=== PATIENT | female | born 1980 | race Caucasian/White ===

== ENCOUNTER → 2016-09-07 | Outpatient (CLI) | payer MEDICARE, MEDICAID ==
[~2016-09-07] MED LIST: ABIL5TAB5 PO; ASPI325T PO; LAMI1TAB8 PO; LAMI200T3 PO; MINI2CAP PO; PERC5TAB6 PO; PRIL40CA PO; QUET30XR PO; THYR60TA PO; TRAN7.5T PO; TRAZ150T14 PO; TRI-TAB PO; TRIH2TA PO; ZOLO50TA PO; [UNRECOGNIZED DRUG - CODE] PO
== END ==
LOC: M LAB 08:15
PROVIDERS: ATTEND Physician Assistant Medical
DX: R56.9 Unspecified convulsions (principal); Z51.81 Encounter for therapeutic drug level monitoring

== ENCOUNTER 2017-02-11 08:43 | Inpatient (IN) | payer MEDICARE, MEDICAID ==
[~2017-02-11] VITALS: Ht 152.4 cm; Wt 50.1 kg
[~2017-02-11 08:43] MED LIST changes: +ABIL1TAB11 PO; -ABIL5TAB5 PO; +LAMI1TAB9 PO; -LAMI200T3 PO; +PERC5TAB12 PO; -PERC5TAB6 PO; -TRAZ150T14 PO; +TRAZ1TAB14 PO; -TRIH2TA PO; +TRIH2TAB3 PO; +[UNRECOGNIZED DRUG - CODE] PO; -[UNRECOGNIZED DRUG - CODE] PO
[2017-02-11] MEDS ORDERED: OXCA300T PO (08:58)
[2017-02-11] MEDS ORDERED: HYDR-3363 PO (08:58)
[2017-02-11] MEDS ORDERED: NS 1,000 ML IV ONE ×2 (09:45→12:15)
[2017-02-11] MEDS ORDERED: MORPHINE 4 MG/ML 1ML SYRINGE IV PRN (09:45)
[2017-02-11] MEDS ORDERED: ONDANSETRON 4MG/2ML VIAL (J2405) IV ONE (09:45)
[2017-02-11 10:21] LABS: BASO % 0.2 % (0.0-1.0); EOS % 0.2 % (0.0-3.0); LARGE UNSTAINED CELL # 0.1 K/mm3 (0.0-0.4); LARGE UNSTAINED CELL % 1.8 % (0.0-4.0); LYMPH # 0.7 K/mm3 (1.5-4.5); LYMPH % 15.1 % (24.0-44.0); MEAN CORPUSCULAR HEMOGLOBIN 28.3 pg (27.0-33.0); MEAN CORPUSCULAR HGB CONC 34.2 g/dl (32.0-36.5); MEAN CORPUSCULAR VOLUME 82.7 fl (80.0-96.0); MONO # 0.3 K/mm3 (0.0-0.8); MONO % 5.5 % (0.0-5.0); NEUTROPHILS # 3.7 K/mm3 (1.8-7.7); NEUTROPHILS % 77.1 % (36.0-66.0); PLATELET COUNT, AUTOMATED 236 k/mm3 (150-450); RED CELL DISTRIBUTION WIDTH 12.7 % (11.5-14.5); WHITE BLOOD COUNT 4.8 K/mm3 (4.0-10.0)
[2017-02-11 10:31] LABS: CALCIUM OXALATE CRYSTALS SMALL
[2017-02-11 10:34] LABS: CONTROL LINE HCG INT CTR LINE PRESENT
[2017-02-11 10:41] LABS: ALBUMIN/GLOBULIN RATIO 1.21 (1.00-1.93); ALKALINE PHOSPHATASE 77 U/L (45-117); ALT/SGPT 19 U/L (12-78); AMYLASE 112 U/L (25-115); ANION GAP 9 MEQ/L (8-16); AST/SGOT 13 U/L (15-37); BILIRUBIN,DIRECT 0.1 MG/DL (0.0-0.2); BILIRUBIN,TOTAL 0.3 MG/DL (0.2-1.0); BLOOD UREA NITROGEN 7 MG/DL (7-18); CALCIUM LEVEL 9.4 MG/DL (8.5-10.1); CARBON DIOXIDE LEVEL 28 MEQ/L (21-32); CHLORIDE LEVEL 94 MEQ/L (98-107); CREATININE FOR GFR 0.59 MG/DL (0.55-1.02); GLOMERULAR FILTRATION RATE > 60.0 (>60); GLUCOSE, FASTING 100 MG/DL (70-105); POTASSIUM SERUM 4.2 MEQ/L (3.5-5.1); SODIUM LEVEL 131 MEQ/L (136-145); TOTAL PROTEIN 7.3 GM/DL (6.4-8.2)
[2017-02-11] MEDS ORDERED: LORazepam 2 MG/ML VIAL (J2060) IV STA (10:56)
[2017-02-11] MEDS ORDERED: ISOVUE-370 76% 100ML VIAL (Q9967) As Ordered ONE (11:05)
--- NOTE | 2017-02-11 11:32 | REP ---
CHEST, PORTABLE: REASON: Pain. COMPARISON: 09/23/2014 FINDINGS: The technique utilized in obtaining the radiograph has magnified the cardiac silhouette and accentuated the interstitial markings. The superior mediastinal structures are midline. The cardiac silhouette is unremarkable in size, shape, and position. The diaphragmatic surfaces of the lungs are regular, and the costophrenic angles are clear. The pulmonary espinal are clear. The imaged osseous structures are intact. IMPRESSION: There is no acute cardiopulmonary disease. Signed by Antwan Osorio DO 02/11/2017 12:07 P
[2017-02-11] MEDS ORDERED: OMEP40CA2 PO (12:06)
[2017-02-11] MEDS ORDERED: TRINTAB3 PO (12:06)
[2017-02-11] MEDS ORDERED: TRAZ50TA11 PO (12:06)
--- NOTE | 2017-02-11 12:10 | REP ---
REASON: Possible pancreatitis. COMPARISON: None. Contrast 100 mL of Isovue 370. The lung bases are clear. The liver is within normal limits. There are a few incidental tiny hepatic cysts. The gallbladder, spleen, pancreas, adrenal glands, and kidneys are within normal limits. The abdominal aorta and para-aortic regions are within normal limits. The bowel loops and mesenteries are within normal limits. There is no free fluid or free air in the abdomen. CT PELVIS: There is no free fluid or free air. There is no mass or adenopathy. The bowel loops and mesenteries are within normal limits. The urinary bladder is distended. The osseous structures show no evidence of a lytic or blastic osseous lesion. IMPRESSION: No pancreatitis by CT criteria. The urinary bladder is distended. Correlate clinically. Signed by Antwan Osorio DO 02/11/2017 12:26 P
--- NOTE | 2017-02-11 12:14 | REP ---
REASON: Altered mental status. PRIORS: None. Mild diffuse lucencies are seen in the periventricular deep cerebral white matter. There is no evidence of an acute intracranial hemorrhagic or nonhemorrhagic event. The ventricles and sulci are within normal limits. There are no extra-axial fluid collections. There is no shift of the midline structures. The imaged paranasal sinuses and mastoid air cells are clear. IMPRESSION: No evidence of acute disease. Possible deep white matter ischemic changes. If the patient has symptoms referable to a demyelinating disorder, then an MRI would be in order. Signed by Antwan Osorio DO 02/11/2017 12:26 P
--- NOTE | 2017-02-11 12:43 | HPEPDOC ---
Medical History and Physical Date of Admission 02/11/17 History and Physical PRIMARY CARE PROVIDER: Dr. Yared Lubin ATTENDING: Dr. Sourav Robison CHIEF COMPLAINT: HISTORY OF PRESENT ILLNESS: This is a 36 y/o with PMHx MR, Seizure d/o, CP, Hypothyroidism, Autism, PTSD, Irregular menses who presents with back/abd pain and decreased appetite. Family/manager environmental health state that the patient has not been wanting to a over the past 2 days. Had no nausea or vomiting however had left upper quadrant pain. Patient has also been a little bit more confused than usual, only remembering her name and birthday. Has been doing repetitive motions getting up, sitting down. Difficulty ambulating by herself. No focal weakness. History is very limited. PAST MEDICAL HISTORY: As per HPI PAST SURGICAL HISTORY: Left leg mey, tooth extraction SOCIAL HISTORY: No tobacco, alcohol, illicit drug use. [facility] patient. FAMILY HISTORY: S - ADHD, Obesity ALLERGIES: Please see below. REVIEW OF SYSTEMS: HEENT: Denies sore throat/headache CARDIOVASCULAR: Denies chest pain/palpitations RESPIRATORY: Denies shortness of breath/cough GASTROINTESTINAL: denies nausea/vomiting GENITOURINARY: Denies dysuria/urinary urgency. MUSCULOSKELETAL: Denies myalgias/arthralgias NEUROLOGICAL: Denies any focal weakness HOME MEDICATIONS: Please see below. PHYSICAL EXAMINATION: Vitals: (see below) General: No acute distress, laying comfortably in bed. Axious HEENT: Moist mucous membranes. Perioral dry, reported to be from frequent licking of the lips. Neck: No JVD or lymphadenopathy Cardiac: RRR, No murmurs Pulm: Clear to auscultation b/l. No wheezing, rhonchi Abd: Mild TTP LUQ. No rebound/guarding/rigidity. ND + BS Ext: No edema or cyanosis Neuro: Very difficult to assess as pt was not cooperating. Moving all extremities equally. Awake and Alert. Oriented to person and birthday. LABORATORY DATA: See below. IMAGING: CXR 02/11/17 IMPRESSION: There is no acute cardiopulmonary disease. CT Head 02/11/17 IMPRESSION: No evidence of acute disease. Possible deep white matter ischemic changes. If the patient has symptoms referable to a demyelinating disorder, then an MRI would be in order. CT Abd/pelvis 02/11/17 IMPRESSION: No pancreatitis by CT criteria. The urinary bladder is distended. Correlate clinically. MICROBIOLOGY: Please see below. ASSESSMENT/PLAN: 1. Acute pancreatitis- sister with multiple episodes of pancreatitis. Will start patient on IV fluids, pain control with morphine. We'll also check right upper quadrant ultrasound. Triglyceride level. Nothing by mouth for now. 2. History of cerebral palsy. Abnormal CT of the head. History of seizures. Recent confusion and difficulty with ambulation. Will obtain MRI of the brain, although the CAT scan findings are very nonspecific. 3. Mental retardation- at [facility] 4. PTSD 5. Irregular menses. Patient is reported to have her menses at this point. Uses 2 pads daily. Family state of PTSD flares with her menses. 6. Hyponatremia - likely hypovolemic 2/2 decreased PO intake. Started on IVF. 7. AMS - ? baseline. Will check MRI brain. No focal deficits. ? Delerium. Will also check B12, TSH. Ammonia. DVT prophylaxis- enoxaparin Had an extensive conversation with the family regarding the treatment plan. They seem to be very nervous about the CAT scan Head findings although they understand that they very specific. Patient followed by Dr. Robison starting 02/12/17 7 AM. Vital Signs Vital Signs Date Time Temp Pulse Resp B/P (MAP) Pulse Ox O2 Delivery O2 Flow Rate FiO2 02/11/17 11:43 104 100 02/11/17 10:35 18 02/11/17 09:13 02/11/17 08:47 99.6 Room Air Laboratory Data Labs 24H Laboratory Tests 2 02/11/17 09:55: White Blood Count 4.8, Red Blood Count 4.44, Hemoglobin 12.6, Hematocrit 36.7, Mean Corpuscular Volume 82.7, Mean Corpuscular Hemoglobin 28.3, Mean Corpuscular Hemoglobin Concent 34.2, Red Cell Distribution Width 12.7, Platelet Count 236, Neutrophils (%) (Auto) 77.1H, Lymphocytes (%) (Auto) 15.1L, Monocytes (%) (Auto) 5.5H, Eosinophils (%) (Auto) 0.2, Basophils (%) (Auto) 0.2 , Neutrophils # (Auto) 3.7, Lymphocytes # (Auto) 0.7L, Monocytes # (Auto) 0.3, Eosinophils # (Auto) 0.0, Basophils # (Auto) 0.0, Large Unclassified Cells % 1.8 , Large Unclassified Cells # 0.1, Urine Appearance CLEAR, Urine Color STRAW, Urine pH 7.0, Urine Specific [place] 1.003, Urine Protein NEGATIVE, Urine Glucose (UA) NEGATIVE, Urine Ketones NEGATIVE, Urine Urobilinogen 0.2, Urine Bilirubin NEGATIVE, Urine Leukocyte Esterase NEGATIVE, Urine Blood NEGATIVE, Urine Nitrite NEGATIVE, Urine WBC (Auto) 0, Urine RBC (Auto) 1, Urine Hyaline Casts (Auto) 0, Urine Bacteria (Auto) NEGATIVE, Urine Squamous Epithelial Cells 1, Urine Transitional Epithelial Cells 1, Urine Calcium Oxalate Cryst (Auto) SMALL, Urine Sperm (Auto) , Anion Gap 9, Glomerular Filtration Rate > 60.0, Lactic Acid Level 0.9, Calcium Level 9.4, Aspartate Amino Transf (AST/SGOT) 13L , Alanine Aminotransferase (ALT/SGPT) 19, Alkaline Phosphatase 77, Total Bilirubin 0.3, Direct Bilirubin 0.1, Total Protein 7.3, Albumin 4.0, Albumin/ Globulin Ratio 1.21, Amylase Level 112, Lipase 751H, Human Chorionic Gonadotropin, Qual NEGATIVE 02/11/17 11:01: CBC/BMP Laboratory Tests 02/11/17 09:55 Red Blood Count 4.44, Mean Corpuscular Volume 82.7, Mean Corpuscular Hemoglobin 28.3, Mean Corpuscular Hemoglobin Concent 34.2, Red Cell Distribution Width 12.7 , Neutrophils (%) (Auto) 77.1 H, Lymphocytes (%) (Auto) 15.1 L, Monocytes (%) ( Auto) 5.5 H, Eosinophils (%) (Auto) 0.2, Basophils (%) (Auto) 0.2, Neutrophils # (Auto) 3.7, Lymphocytes # (Auto) 0.7 L, Monocytes # (Auto) 0.3, Eosinophils # (Auto) 0.0, Basophils # (Auto) 0.0 Microbiology Microbiology 02/11/17 Blood Culture, Received Pending 02/11/17 Blood Culture, Received Pending 02/11/17 Urine Culture, Received Pending Home Medications Scheduled (Trinessa 0.18/0.215/0.25 mg-35 Mcg) 1 Tab Tab, 1 TAB PO DAILY Aripiprazole (Abilify) 5 Mg Tab, 5 MG PO BID Clorazepate Dipotassium (Tranxene T) 7.5 Mg Tab, 7.5 MG PO DAILY Hydroxyzine HCl (Hydroxyzine HCl) 25 Mg Tab, 25 MG PO QID Lamotrigine (Lamictal) 150 Mg Tab, 150 MG PO DAILY Lamotrigine (Lamictal) 200 Mg Tab, 200 MG PO QHS Omeprazole (Omeprazole) 40 Mg Cap, 40 MG PO QPM TAKES AT 1600 Oxcarbazepine (Oxcarbazepine) 300 Mg Tab, 300 MG PO DAILY Prazosin HCl (Minipress) 2 Mg Cap, 2 MG PO QHS Quetiapine Fumarate (Seroquel Xr) 300 Mg [place], 600 MG PO QHS Sertraline Hcl (Zoloft) 50 Mg Tab, 50 MG PO DAILY Thyroid ([place] Thyroid) 60 Mg Tab, 60 MG PO DAILY Trazodone HCl (Trazodone HCl) 50 Mg Tab, 150 MG PO QHS Trihexyphenidyl HCl (Trihexyphenidyl HCl) 2 Mg Tab, 1 MG PO BID Allergies Coded Allergies: No Known Drug Allergy (Unverified Allergy, Unknown, 10/16/12) MARIO MOSLEY MD Feb 11, 2017 12:43
[2017-02-11 14:45] VITALS: BP 148/94
[2017-02-11 14:57] LABS: FREE T4 1.3 NG/DL (0.76-1.46)
[2017-02-11] MEDS: NS 1,000 ML IV SCH ×2 (15:26→19:55)
[2017-02-11] MEDS: OXcarbazepine 300 MG TAB PO SCH (16:14)
[2017-02-11] MEDS: OMEPRAZOLE 20 MG CAP PO SCH (16:15)
[2017-02-11] MEDS: hydrOXYzine 25 MG TAB PO SCH ×2 (16:15→19:51)
[2017-02-11] MEDS: CLORAZEPATE 3.75 MG TAB PO SCH (16:17)
[2017-02-11] MEDS: lamoTRIgine 100MG TAB PO SCH (19:51)
[2017-02-11] MEDS: TRIHEXYPHENIDYL 2 MG TAB PO SCH (19:51)
[2017-02-11] MEDS: traZODone 50 MG TAB PO SCH (19:51)
[2017-02-11] MEDS: QUEtiapine 300 MG XR TABLET(SEROQUEL XR) PO SCH (19:52)
[2017-02-11] MEDS: PRAZOSIN 1 MG CAP PO SCH (19:53)
[2017-02-11] MEDS: MORPHINE 2 MG/ML 1ML SYRINGE IV PRN (20:26)
--- NOTE | 2017-02-11 21:34 | ECGEPIP ---
Stationary ECG Study [facility] Test Date: 2017-02-11 Pat Name: BAYLEE LUEVANO Department: Room: [place] [address] Gender: F Load Dispatcher Local: [place] : 1980 Requested By: MARIO MOSLEY Order Number: [id number] Reading MD: Otis Sue Measurements Intervals [place] Rate: 89 P: 61 RI: 155 QRS: 46 QRSD: 85 T: 47 QT: 355 QTc: 432 Interpretive Statements SINUS RHYTHM WITH SINUS ARRHYTHMIA Comparison tracing not on file Electronically Signed On 02-11-2017 21:33:57 EDT by Otis Sue
[2017-02-11 21:41] VITALS: BP 145/98
[2017-02-12] MEDS: NS 1,000 ML IV SCH ×4 (04:09→21:47)
[2017-02-12 06:00] VITALS: BP 134/99
[2017-02-12] MEDS: THYROID 30 MG TAB PO SCH (06:34)
[2017-02-12] MEDS: TRIHEXYPHENIDYL 2 MG TAB PO SCH ×2 (08:47→21:45)
[2017-02-12] MEDS: SERTRALINE HCL 50 MG TAB PO SCH (08:47)
[2017-02-12] MEDS: PIPERACILLIN/TAZOBACTAM SOD 3.375 GM in D5W MINI-BAG PLUS 50 ML IV SCH ×3 (08:47→19:56)
[2017-02-12] MEDS: CLORAZEPATE 3.75 MG TAB PO SCH (08:47)
[2017-02-12] MEDS: hydrOXYzine 25 MG TAB PO SCH ×4 (08:48→21:46)
[2017-02-12 08:49] LABS: MEAN CORPUSCULAR HEMOGLOBIN 28.7 pg (27.0-33.0); MEAN CORPUSCULAR VOLUME 84.4 fl (80.0-96.0); RED CELL DISTRIBUTION WIDTH 13.1 % (11.5-14.5); WHITE BLOOD COUNT 3.9 K/mm3 (4.0-10.0)
[2017-02-12] MEDS: ENOXAPARIN 40 MG/0.4 ML SYRINGE (J1650) SC SCH (08:49)
[2017-02-12 09:34] LABS: ALBUMIN 4.1 GM/DL (3.2-5.2); ALBUMIN/GLOBULIN RATIO 1.28 (1.00-1.93); ALKALINE PHOSPHATASE 79 U/L (45-117); ALT/SGPT 22 U/L (12-78); ANION GAP 9 MEQ/L (8-16); AST/SGOT 15 U/L (15-37); BILIRUBIN,TOTAL 0.3 MG/DL (0.2-1.0); BLOOD UREA NITROGEN 5 MG/DL (7-18); CALCIUM LEVEL 9.3 MG/DL (8.5-10.1); CARBON DIOXIDE LEVEL 26 MEQ/L (21-32); CHLORIDE LEVEL 102 MEQ/L (98-107); CREATININE FOR GFR 0.59 MG/DL (0.55-1.02); GLOMERULAR FILTRATION RATE > 60.0 (>60); GLUCOSE, FASTING 58 MG/DL (70-105); SODIUM LEVEL 137 MEQ/L (136-145); TOTAL PROTEIN 7.3 GM/DL (6.4-8.2)
[2017-02-12] MEDS: OXcarbazepine 300 MG TAB PO SCH (10:10)
[2017-02-12] MEDS: VANCOMYCIN HCL 1,000 MG, VIAL MATE ADAPTER 1 EACH in D5W 250 ML IV SCH ×2 (10:10→21:47)
--- NOTE | 2017-02-12 12:19 | REP ---
REASON: Abdominal pain. Prior ultrasonographic examinations: None. Multiple sonographic images of the liver show no evidence of intrahepatic or extrahepatic ductal dilatation. Two tiny echogenic foci are seen in the hepatic parenchyma which are most consistent with small hemangiomas. There are no definite hepatic masses. The common bile duct measures 3 mm. There is no gallbladder abnormality. The imaged portion of the pancreas and right kidney are normal. The technologist has made note on the worksheet that the exam is limited due to the patient's inability to understand ? IMPRESSION: Probable hepatic hemangiomas. Pre and post gadolinium enhanced MRI would be confirmatory. Signed by Antwan Osorio DO 02/12/2017 12:43 P
--- NOTE | 2017-02-12 12:19 | PHACANCOPD ---
PHARMACY VANCOMYCIN DOSING Pt Demographics Demographics Patient Age:36 , Weight:47.200 , Gender: female Adjusted Body Weight Date: 02/12/17, Adjusted Body Weight: [NA] Kg Events Past 24 Hours Events Past 24 Hours: YES: Fever, NO: Dialysis, Diuretic Therapy, Change in CrCl, Elevation in WBC, Pending Diagnostics, Pending Procedures, Other Vancomycin Vancomycin indication: bacteremia Vancomycin Target Ranges: 10-20 mcg/ml Vancomycin Load Y/N: No Load Dose Date Time Vancomycin Load Dose: Date: Time: Vancomycin Dose Date: 02/12/17. Current Vancomycin Dose: [1g IV q12h @09] Intermittent Dosing?: No Labs Labs Item Value Date Time White Blood Count 4.8 K/mm3 02/11/17 0955 White Blood Count 3.9 K/mm3 L 02/12/17 0840 Creatinine 0.59 MG/DL 02/12/17 0840 Creatinine 0.59 MG/DL 02/11/17 0955 Micro Microbiology 02/12/17 Blood Culture, Received Pending 02/11/17 Blood Culture - Preliminary, Resulted 02/11/17 Blood Culture - Preliminary, Resulted 02/11/17 Urine Culture - Final, Complete Creatinine Clearance Date:02/12/17. Creatinine Clearance: [>100 ml/min]. Assessment and Plan Maintaining Current Dose?: Yes Reason for dose change: No Dose Change Pharmacist Note Pharmacist Note Date: 02/12/17. Pharmacist note: pt was admitted yesterday for acute pancreatitis , blood cultures drawn yesterday are preliminary positive for gram + cocci in clusters 2/2. Repeat blood culture was drawn this morning. Pt has not been on vancomycin at our facility in the past, nor does she have a Hx of MRSA. Due to the pt's [facility] status and multiple co-morbidities, I have continued her on vancomycin 1g IV q12h. We will continue to monitor cultures and follow up with a trough as necessary. Osei Joseph Pharm.D. Feb 12, 2017 12:19
--- NOTE | 2017-02-12 13:49 | IPN ---
DATE: 02/12/2017 DATE OF ADMISSION: 02/12/2017 SUBJECTIVE: The patient denies pain. She was oriented to person but not to place , time or situation. She follows most commands. She does not make eye contact or track around the room. She is awake, alert. HEENT: She has a chronic dysconjugate gaze, perioral erythema, Moist mucous membranes. No elevation of CVP. CARDIOVASCULAR EXAM: S1, S2. RESPIRATORY EXAM: Fairly clear. ABDOMINAL EXAM: Benign. At this time, there is no tenderness to palpation. EXTREMITIES: No clubbing, cyanosis or edema. LABORATORY STUDIES: WBC 3.9 down from 4.8, hemoglobin 12.9, platelet count 225, ESR 5. Chemistry panel: Sodium 137, potassium 4.0, chloride 102, bicarbonate 26, BUN 5, creatinine 0.5 and ammonia level is within normal limits. Liver function test within normal limits. Lipase is elevated at 751. Amylase was close to the upper limit of normal. B12 level is pending. TSH is within normal limits and hCG is negative. CRP is 0.33. Toxicology: Lamotrigine level is pending. Urinalysis unremarkable. Microbiology: Blood cultures - One bottle positive from yesterday for gram-positive cocci in clusters and chains and a second bottle positive for gram-positive cocci in clusters. Urine culture is negative. Repeat blood culture done this morning is pending. IMAGING: The patient had a chest x-ray that revealed no acute cardiopulmonary disease. She had a CT scan of the head, which revealed no acute disease, possible deep white matter ischemic changes. The patient did have a CT scan of the abdomen and pelvis, which revealed no pancreatitis by CT criteria. ASSESSMENT AND PLAN: This is a 36-year-old female admitted with abdominal pain, back pain and decreased appetite and increased confusion. Problems: 1. Abdominal pain, back pain and confusion. The patient has a history of cerebral palsy, autism, post-traumatic stress disorder (PTSD), which make interpreting her history and her presentation somewhat challenging. I suspect, based on her laboratory presentation, that she has a mild case of acute pancreatitis. She has been nothing by mouth (n.p.o.), and she is hungry and requesting food and appears to be improved as per sister who knows her well and is accompanying her at the present time. I will advance her to a clear liquid diet. I will continue with IV fluids until it is clear she is tolerating this. She has been provided with pain medications, though she does not appear to be in any pain at this time. The etiology for her pancreatitis is unclear. A gallbladder ultrasound is pending. Lipid panel is not impressive. There have not been any new medications which are suspicious. She has not been ill recently. 2. Deep white matter changes. An unclear finding. The patient does have some confusion at present; however, it does not seem consistent with the rest of her presentation. An MRI has been ordered, which will likely be completed tomorrow. We will followup the results. Extensive time was spent discussing these findings with the patient's family at the bedside and what they can potentially mean and what they could potentially not mean. 3. Hyponatremia, likely secondary to hypovolemia. Resolved with IV fluids. 4. Bacteremia. The patient has two out of two blood cultures positive. Curiously , she has not had an impressive fever; her maximum temperature (T max) was 100.5. She did not have leukocytosis. Her inflammatory markers are fairly unimpressive as well. I will repeat a blood culture bottle today. If she has persistent bacteremia or grows organisms which are not normal la, would check an echocardiogram. For the time being, she is on empiric vancomycin and Zosyn and will check a methicillin-resistant Staphylococcus aureus (MRSA) screen of her nares as well. 5. Irregular menses. The patient follows with gynecology (RESIDENTIAL SUBCONTRACTOR). 6. Mental retardation. The patient has autism and cerebral palsy with MR; the patient is a [facility] ([facility]) patient. Her family is very close with her and involved very closely with her care. She is on sertraline, Zoloft, Abilify, prazosin, trazodone, Artane, hydroxyzine. Please note, the patient is also on Tranxene and Trileptal. 7. Gastroesophageal reflux disease. She is on omeprazole. 8. Seizure disorder. She is on Lamictal. 9. Deep vein thrombosis (DVT) prophylaxis. The patient is on Lovenox. DISPOSITION: Will continue to monitor this patient closely. [facility]
[2017-02-12 14:00] VITALS: BP 136/88
[2017-02-12] MEDS: OMEPRAZOLE 20 MG CAP PO SCH (16:12)
[2017-02-12] MEDS: lamoTRIgine 100MG TAB PO SCH (21:46)
[2017-02-12] MEDS: PRAZOSIN 1 MG CAP PO SCH (21:46)
[2017-02-12] MEDS: traZODone 50 MG TAB PO SCH (21:46)
[2017-02-12] MEDS: QUEtiapine 300 MG XR TABLET(SEROQUEL XR) PO SCH (21:47)
[2017-02-12 22:00] VITALS: BP 151/86
[2017-02-13] MEDS: PIPERACILLIN/TAZOBACTAM SOD 3.375 GM in D5W MINI-BAG PLUS 50 ML IV SCH ×4 (02:21→19:42)
[2017-02-13 06:00] VITALS: BP 149/95
[2017-02-13] MEDS: THYROID 30 MG TAB PO SCH (06:11)
[2017-02-13 06:54] LABS: ALBUMIN 3.4 GM/DL (3.2-5.2); ALBUMIN/GLOBULIN RATIO 1.31 (1.00-1.93); ALKALINE PHOSPHATASE 72 U/L (45-117); ALT/SGPT 16 U/L (12-78); ANION GAP 11 MEQ/L (8-16); AST/SGOT 13 U/L (15-37); BILIRUBIN,TOTAL 0.5 MG/DL (0.2-1.0); BLOOD UREA NITROGEN 4 MG/DL (7-18); CARBON DIOXIDE LEVEL 26 MEQ/L (21-32); CHLORIDE LEVEL 104 MEQ/L (98-107); CREATININE FOR GFR 0.59 MG/DL (0.55-1.02); GLOMERULAR FILTRATION RATE > 60.0 (>60); GLUCOSE, FASTING 84 MG/DL (70-105); POTASSIUM SERUM 3.6 MEQ/L (3.5-5.1); SODIUM LEVEL 141 MEQ/L (136-145)
[2017-02-13 07:53] LABS: BASO % 0.5 % (0.0-1.0); EOS # 0.1 K/mm3 (0.0-0.50); EOS % 1.9 % (0.0-3.0); LARGE UNSTAINED CELL # 0.1 K/mm3 (0.0-0.4); LARGE UNSTAINED CELL % 1.1 % (0.0-4.0); LYMPH % 23.4 % (24.0-44.0); MEAN CORPUSCULAR HEMOGLOBIN 28.6 pg (27.0-33.0); MEAN CORPUSCULAR HGB CONC 34.1 g/dl (32.0-36.5); MEAN CORPUSCULAR VOLUME 83.8 fl (80.0-96.0); MONO # 0.2 K/mm3 (0.0-0.8); MONO % 5.5 % (0.0-5.0); NEUTROPHILS # 2.8 K/mm3 (1.8-7.7); NEUTROPHILS % 67.6 % (36.0-66.0); PLATELET COUNT, AUTOMATED 230 k/mm3 (150-450); RED CELL DISTRIBUTION WIDTH 12.9 % (11.5-14.5); WHITE BLOOD COUNT 4.1 K/mm3 (4.0-10.0)
[2017-02-13] MEDS: NS 1,000 ML IV SCH ×3 (08:24→21:53)
[2017-02-13] MEDS ORDERED: ALPRAZolam 0.25 MG TAB PO ONE (09:00)
[2017-02-13 09:03] VITALS: BP 125/74
[2017-02-13] MEDS: SERTRALINE HCL 50 MG TAB PO SCH (10:02)
[2017-02-13] MEDS: TRIHEXYPHENIDYL 2 MG TAB PO SCH ×2 (10:03→21:51)
[2017-02-13] MEDS: CLORAZEPATE 3.75 MG TAB PO SCH (10:03)
[2017-02-13] MEDS: OXcarbazepine 300 MG TAB PO SCH (10:03)
[2017-02-13] MEDS: hydrOXYzine 25 MG TAB PO SCH ×4 (10:03→21:53)
[2017-02-13] MEDS: VANCOMYCIN HCL 1,000 MG, VIAL MATE ADAPTER 1 EACH in D5W 250 ML IV SCH ×2 (10:04→21:50)
[2017-02-13] MEDS: ENOXAPARIN 40 MG/0.4 ML SYRINGE (J1650) SC SCH (10:04)
[2017-02-13 11:41] VITALS: BP 127/89
[2017-02-13 13:53] VITALS: BP 139/90
[2017-02-13 14:00] VITALS: BP 137/87
[2017-02-13] MEDS: OMEPRAZOLE 20 MG CAP PO SCH (14:49)
--- NOTE | 2017-02-13 17:38 | IPN ---
DATE: 02/13/2017 SUBJECTIVE: The patient denies pain. She denies being hungry and has no complaints. She knows she is in the hospital. OBJECTIVE: VITAL SIGNS: Temperature 97.3, pulse 86, respiratory rate 16, blood pressure 125/74, oxygen saturation 100% on room air. GENERAL: She is a young, slender, female sitting up in a recliner leaning over her tray table. She does not appear to be in acute distress. HEENT: She has a chronic disconjugate gaze, improved perioral erythema, moist mucous membranes. No elevation in central venous pressure (CVP). CARDIOVASCULAR EXAM: S1, S2, no murmur appreciated. RESPIRATORY EXAM: Clear. ABDOMINAL EXAM: Benign. No tenderness to palpation. EXTREMITIES: No clubbing, cyanosis, or edema. LABORATORY STUDIES: WBC 4.1, hemoglobin 13.5, hematocrit 39.4, platelet count 230, ESR 5. Chemistry panel: Sodium 141, potassium 3.6, chloride 104, bicarbonate 26, BUN 4, creatinine 0.5. She had a TSH within normal limits, a vitamin B12 level within normal limits, a lipase which was initially elevated at 751, a CRP of 0.33. MICROBIOLOGY: One blood culture from 02/11/2017, has returned positive preliminarily for Staphylococcus aureus. No culture and sensitivities yet. Urine culture is negative. A second bottle from 02/11/2017, has preliminarily returned positive for gram-positive cocci in clusters. A blood culture bottle from 02/12/2017, is preliminarily no growth and one from 02/13/2017 is also no growth. MRSA screen of the nares is negative. A liver ultrasound revealed probable hepatic hemangiomas. ASSESSMENT AND PLAN: This is a 36-year-old female with abdominal pain, back pain and decreased appetite and increased confusion. 1. Abdominal pain, back pain and confusion. The patient has a history of cerebral palsy, autism, posttraumatic stress disorder (PTSD). At the present time, the patient appears comfortable. As per the patient's sister, the abdominal pain is resolved. She normally eats quite a bit and yesterday she was eating quite a bit, today she is eating less and the sister is very concerned that she appears to be confused and not herself as of yet. I did stress to the patient's sister that she is in an unfamiliar environment, she is still ill, she is still receiving lots of new medications and that may be contributing to her being slightly off. There is also suspicion for an infection. For the time being, her pancreatitis appears to be resolving well. She is tolerating a regular diet. She is no longer on IV fluids. She does not have any pain. 2. Deep white matter changes on CT head. An unclear finding. The patient does have some waxing and waning mental status as per the sister. At this time, I feel it may not be related to her acute presentation. An MRI of the brain has been ordered. We will attempt to complete this with pretreating her with some Xanax. I do not wish to over sedate her or worsen her confusion and, as such, have decided to withhold further sedating medication. If we are unable to complete this inpatient, it could certainly be completed on the outpatient setting. 3. Hyponatremia, resolved, secondary to hypovolemia. 4. Bacteremia. Initially, it was one bottle positive. The patient has had a maximum temperature (Tmax) her entire stay of a one time temperature of 100.5. She has otherwise not had leukocytosis or elevated inflammatory markers. We have placed her on broad-spectrum antibiotics as now she had two blood culture bottles positive and appears as though is returning Staphylococcus aureus. The patient did have some perioral erythema, this could be a potential entry point if she did have some Staphylococcus aureus impetigo which seeded into the bloodstream. Repeat blood cultures are thus far negative. I have ordered her for an echocardiogram, although my suspicion for any endocarditis involvement is quite low. Will followup her culture and sensitivities and narrow antibiotic spectrum as appropriate. 5. Irregular menses. The patient follows with gynecology (SOFTWARE SECURITY ARCHITECT). 6. Hepatic hemangiomas. An incidental finding too small to characterize any further. Recommend repeat imaging in outpatient followup. 7. Mental retardation (MR). The patient has autism and cerebral palsy and is a [facility] ([facility]) patient. The patient is on sertraline, Zoloft, Abilify, prazosin, trazodone, Artane, hydroxyzine, as well as Tranxene and Trileptal. 8. Gastroesophageal reflux disease. The patient is on omeprazole. 9. Seizure disorder. The patient is on Lamictal. 10. Deep vein thrombosis (DVT) prophylaxis. The patient is on Lovenox. DISPOSITION: Pending microbiology and MRI results as well as patient's clinical progress.
[2017-02-13] MEDS: PRAZOSIN 1 MG CAP PO SCH (21:52)
[2017-02-13] MEDS: lamoTRIgine 100MG TAB PO SCH (21:53)
[2017-02-13] MEDS: traZODone 50 MG TAB PO SCH (21:55)
[2017-02-13 22:00] VITALS: BP 136/86
[2017-02-13] MEDS: QUEtiapine 300 MG XR TABLET(SEROQUEL XR) PO SCH (22:03)
[2017-02-14] MEDS: PIPERACILLIN/TAZOBACTAM SOD 3.375 GM in D5W MINI-BAG PLUS 50 ML IV SCH ×4 (02:39→20:43)
[2017-02-14] MEDS: NS 1,000 ML IV SCH ×3 (02:39→20:44)
[2017-02-14] MEDS: THYROID 30 MG TAB PO SCH (05:57)
[2017-02-14 06:00] VITALS: BP 142/87
[2017-02-14 07:34] LABS: ALBUMIN 3.2 GM/DL (3.2-5.2); ALBUMIN/GLOBULIN RATIO 1.19 (1.00-1.93); ALKALINE PHOSPHATASE 71 U/L (45-117); ALT/SGPT 18 U/L (12-78); ANION GAP 7 MEQ/L (8-16); AST/SGOT 11 U/L (15-37); BILIRUBIN,TOTAL 0.3 MG/DL (0.2-1.0); BLOOD UREA NITROGEN 4 MG/DL (7-18); CALCIUM LEVEL 8.8 MG/DL (8.5-10.1); CARBON DIOXIDE LEVEL 29 MEQ/L (21-32); CHLORIDE LEVEL 108 MEQ/L (98-107); CREATININE FOR GFR 0.57 MG/DL (0.55-1.02); GLOMERULAR FILTRATION RATE > 60.0 (>60); GLUCOSE, FASTING 87 MG/DL (70-105); POTASSIUM SERUM 3.5 MEQ/L (3.5-5.1); SODIUM LEVEL 144 MEQ/L (136-145); TOTAL PROTEIN 5.9 GM/DL (6.4-8.2)
[2017-02-14] MEDS ORDERED: POTASSIUM CHLORIDE 10 MEQ SR TABLET PO ONE (09:15)
[2017-02-14] MEDS: hydrOXYzine 25 MG TAB PO SCH ×4 (10:08→21:32)
[2017-02-14] MEDS: SERTRALINE HCL 50 MG TAB PO SCH (10:10)
[2017-02-14] MEDS: CLORAZEPATE 3.75 MG TAB PO SCH (10:30)
[2017-02-14] MEDS: OXcarbazepine 300 MG TAB PO SCH (10:30)
[2017-02-14] MEDS: TRIHEXYPHENIDYL 2 MG TAB PO SCH ×2 (10:30→21:32)
[2017-02-14] MEDS: ENOXAPARIN 40 MG/0.4 ML SYRINGE (J1650) SC SCH (10:34)
[2017-02-14] MEDS: VANCOMYCIN HCL 1,000 MG, VIAL MATE ADAPTER 1 EACH in D5W 250 ML IV SCH ×2 (11:27→22:16)
[2017-02-14] MEDS: SENOKOT S TAB PO SCH ×2 (13:45→21:32)
[2017-02-14] MEDS: MIRALAX *UNIT DOSE* 17GM PACKET PO SCH (13:45)
[2017-02-14 14:00] VITALS: BP 125/80
[2017-02-14] MEDS: OMEPRAZOLE 20 MG CAP PO SCH (15:28)
--- NOTE | 2017-02-14 19:20 | IPN ---
DATE: 02/14/2017 Patient is seen and examined. Denies any pain. Patient is a very poor historian with mental retardation and cerebral palsy, but as per security architect, patient is not at her baseline, really not eating on her own, still seems to be weak, not acting herself. Further history not possible. Patient knows that she is at the hospital, but keeps saying that she is seeing presents. VITAL SIGNS: Temperature 98.7, pulse 94, respirations 18, blood pressure 125/80, pulse oximetry 98% on room air. LABORATORY DATA: WBC 4.1, hemoglobin and hematocrit 13.5/39.4, platelets 230. Chemistry: Sodium 144, potassium 3.5, chloride 108, bicarbonate 29, BUN 4, creatinine 0.57. PHYSICAL EXAMINATION: GENERAL: Patient alert, oriented to self and to hospital, in no acute distress. Follows simple command with multiple encouragement. HEENT: Chronic disconjugate gaze. Improved perioral erythema. Moist mucous membranes. CARDIAC: Regular rate and rhythm. No murmur is detected. PULMONARY: Bilaterally clear. ABDOMEN: Soft, nontender. Positive bowel sounds. EXTREMITIES: No clubbing, cyanosis, or edema. NEUROLOGIC: Difficult to assess given patient is not following much commands, but able to move all four extremities. ASSESSMENT AND PLAN: This is a 36-year-old female patient with underlying medical history of mental retardation, cerebral palsy, seizure disorder, hypothyroidism, autism, posttraumatic stress disorder, irregular menses, presented with back pain, abdominal pain, decrease in appetite, and change of mental status. 1. Abdominal pain, back pain, confusion, history of cerebral palsy, autism, posttraumatic stress disorder, mental retardation. Patient shows initial mild lipase elevation, possible pancreatitis. Treated with IV fluids. Currently tolerating diet but still not back to baseline. Normally eats quite a bit, but currently patient is not eating as much. Family is concerned that she is not yet back to her baseline. Will repeat lipase. Suspicious for infectious etiology. Continue IV fluids as ordered. 2. CT with questionable deep white matter changes. Unclear etiology. Family is concerned with waxing and waning mental status. Case discussed with radiology, Dr. Barnes. Finding is most likely consistent with cerebral palsy. Case was also discussed with neurology, given radiology assessment. Neurology would like to hold off on MRI of the brain given patient would require anesthesia and does not tolerate with light sedative. Will hold off MRI until underlying other alternative infectious etiology and pancreatitis has resolved prior to pursuing more neurological findings. Will get an EEG to see if patient will tolerate. 3. Hypovolemic hyponatremia. Currently resolved. Continue to monitor. 4. Bacteremia. Two out of two positive with maximum temperature (Tmax) of 100.4. Unfortunately, no infectious disease support is available this week. Repeat culture has been sent. Patient is currently on Zosyn and vancomycin. No obvious source has been found. Will get echocardiogram. If negative, will get transesophageal echocardiogram to rule out endocarditis. Perioral lesions consistent with hepatic lesions that seems to be getting better. Less likely to be primary source of bacteremia given it is only minimum. 5. Irregular menses. Followup with gynecology as outpatient. 6. Hepatic hemangioma. Incidental finding. Will need outpatient followup. Unfortunately, further study including MRI with and without contrast will require sedation which will only show marginal benefit. However, if general sedation for MRI of the brain is needed, then will do MRI of the liver with and without contrast as well, but if not, then will not take the risk, will recommend outpatient followup. 7. Mental retardation with cerebral palsy and autism. Patient is a resident of [facility] ([facility] Supportive care. Continue home medication of Zoloft, Abilify, prazosin, trazodone, Artane, hydroxyzine, as well as Tranxene and Trileptal. 8. Gastroesophageal reflux disease (GERD). Continue proton pump inhibitor (PPI). 9. Seizure disorder. Continue current medication. 10. Deep venous thrombosis (DVT) prophylaxis. Lovenox subcutaneous. DISPOSITION: Pending clinical improvement, cultures, EEG. Case discussed with neurology, Dr. Horn.
[2017-02-14] MEDS: QUEtiapine 300 MG XR TABLET(SEROQUEL XR) PO SCH (21:32)
[2017-02-14] MEDS: traZODone 50 MG TAB PO SCH (21:32)
[2017-02-14] MEDS: lamoTRIgine 100MG TAB PO SCH (21:32)
[2017-02-14] MEDS: PRAZOSIN 1 MG CAP PO SCH (21:36)
[2017-02-14 22:00] VITALS: BP 146/91
[2017-02-15] MEDS: PIPERACILLIN/TAZOBACTAM SOD 3.375 GM in D5W MINI-BAG PLUS 50 ML IV SCH ×2 (01:36→07:50)
[2017-02-15] MEDS: NS 1,000 ML IV SCH ×3 (03:06→18:28)
[2017-02-15] MEDS: THYROID 30 MG TAB PO SCH (05:41)
[2017-02-15 06:00] VITALS: BP 129/84
[2017-02-15 06:38] LABS: MEAN CORPUSCULAR HEMOGLOBIN 28.9 pg (27.0-33.0); MEAN CORPUSCULAR HGB CONC 33.8 g/dl (32.0-36.5); MEAN CORPUSCULAR VOLUME 85.5 fl (80.0-96.0); RED CELL DISTRIBUTION WIDTH 13.3 % (11.5-14.5); WHITE BLOOD COUNT 4.7 K/mm3 (4.0-10.0)
[2017-02-15 06:59] LABS: ALBUMIN 3.6 GM/DL (3.2-5.2); ALBUMIN/GLOBULIN RATIO 1.09 (1.00-1.93); ALKALINE PHOSPHATASE 82 U/L (45-117); ALT/SGPT 18 U/L (12-78); ANION GAP 8 MEQ/L (8-16); AST/SGOT 10 U/L (15-37); BILIRUBIN,TOTAL 0.3 MG/DL (0.2-1.0); BLOOD UREA NITROGEN 7 MG/DL (7-18); CALCIUM LEVEL 9.3 MG/DL (8.5-10.1); CARBON DIOXIDE LEVEL 29 MEQ/L (21-32); CHLORIDE LEVEL 106 MEQ/L (98-107); CREATININE FOR GFR 0.73 MG/DL (0.55-1.02); GLOMERULAR FILTRATION RATE > 60.0 (>60); GLUCOSE, FASTING 78 MG/DL (70-105); MAGNESIUM LEVEL 2.3 MG/DL (1.8-2.4); SODIUM LEVEL 143 MEQ/L (136-145); TOTAL PROTEIN 6.9 GM/DL (6.4-8.2)
[2017-02-15] MEDS: SENOKOT S TAB PO SCH ×2 (09:55→22:03)
[2017-02-15] MEDS: OXcarbazepine 300 MG TAB PO SCH (09:56)
[2017-02-15] MEDS: MIRALAX *UNIT DOSE* 17GM PACKET PO SCH (09:56)
[2017-02-15] MEDS: SERTRALINE HCL 50 MG TAB PO SCH (09:56)
[2017-02-15] MEDS: TRIHEXYPHENIDYL 2 MG TAB PO SCH ×2 (09:56→22:02)
[2017-02-15] MEDS: hydrOXYzine 25 MG TAB PO SCH ×4 (09:56→22:05)
[2017-02-15] MEDS: CLORAZEPATE 3.75 MG TAB PO SCH (09:56)
[2017-02-15] MEDS: ENOXAPARIN 40 MG/0.4 ML SYRINGE (J1650) SC SCH (09:57)
[2017-02-15] MEDS: VANCOMYCIN HCL 1,000 MG, VIAL MATE ADAPTER 1 EACH in D5W 250 ML IV SCH (09:57)
[2017-02-15 14:00] VITALS: BP 156/88
[2017-02-15] MEDS ORDERED: GASTROGRAFIN SOLUTION 30ML PO ONE ×2 (15:00→16:00)
[2017-02-15] MEDS ORDERED: GASTROGRAFIN SOLUTION 30ML (Q9963) PO ONE ×2 (15:30→16:30)
[2017-02-15] MEDS: OMEPRAZOLE 20 MG CAP PO SCH (15:56)
[2017-02-15] MEDS: MORPHINE 2 MG/ML 1ML SYRINGE IV PRN ×2 (15:57→22:02)
[2017-02-15] MEDS: NAFCILLIN SOD 2 GM in D5W MINI-BAG PLUS 100 ML IV SCH ×2 (16:23→22:02)
[2017-02-15] MEDS ORDERED: ISOVUE-370 76% 100ML VIAL (Q9967) As Ordered ONE (17:29)
--- NOTE | 2017-02-15 20:02 | REP ---
CT of the brain without and with IV contrast: Comparison is 02/11/2017. There is no hemorrhage. There is no edema, mass effect or midline shift. The cortical stripe is unremarkable. Ventricles are normal size and midline. The visualized paranasal sinuses and mastoids are unremarkable. Impression: There is no hemorrhage, acute infarct or mass. Essentially negative CT study of the brain. If symptoms persist or worsen, consider MRI. Signed by Robert Hsieh MD 02/15/2017 07:53 P
--- NOTE | 2017-02-15 20:09 | REP ---
CT of the abdomen pelvis with IV and bowel contrast: Comparison is 02/11/2017. The bladder is moderately distended. The markedly distended bladder on the comparison study is significantly decreased in size. The head, body and tail of the pancreas demonstrate normal enhancement. No pancreatic or peripancreatic inflammatory changes are identified. The pancreas has a normal appearance by CT and is unchanged. The visualized lung espinal are unremarkable. The hepatic parenchyma, gallbladder, spleen, adrenals, kidneys and abdominal aorta are unremarkable. The small and large bowel loops are fluid filled but nondistended. There are no inflammatory changes in the mesentery. Pelvis: The margins of the uterus arch obscured by adjacent bowel loops is not as well demonstrated as on the comparison study. The uterus is tilted to the left. No definite adnexal masses are identified. However, depending on symptoms, consider pelvic ultrasound for better evaluation of the uterus and adnexa. No pelvic adenopathy is identified. There is a trace of ascites in the cul-de-sac. Impression: The pancreas has a normal appearance by CT. There is no CT evidence of pancreatitis. The uterus is poorly identified and the margins are obscured by fluid filled bowel. Depending on the symptoms, consider pelvic ultrasound for further evaluation of the uterus and adnexa. The small bowel and large bowel loops are nondistended and fluid-filled. This is nonspecific. Signed by Robert Hsieh MD 02/15/2017 08:00 P
--- NOTE | 2017-02-15 21:08 | IPN ---
DATE: 02/15/2017 Patient seen and examined. No acute events overnight but continued to have poor oral intake. Repeat lipase level was more elevated. Patient reported vague pain in the abdomen. Patient is baseline with cerebral palsy, mental retardation, post traumatic stress disorder, very poor historian, minimum verbal. Otherwise denies any chest pain but reports vague abdominal pain. As per manager contracting, continued to have poor oral intake. VITAL SIGNS: Temperature 97.5, pulse 97, respirations 16, blood pressure 156/88, pulse oximetry 94% on room air. LABORATORY DATA: WBC 4.7, hemoglobin and hematocrit 12.8/37.8, platelets 220, ESR 7. CRP 0.5. Sodium 143, potassium 4, chloride 106, bicarbonate 29, BUN 7, creatinine 0.73. PHYSICAL EXAMINATION: GENERAL: Patient alert, oriented to self in hospital in no acute distress. Follows simple commands but is inconsistent and needs multiple encouragements. HEENT: Chronic dysconjugate gaze. Perioral erythema has almost resolved. Moist mucous membranes. CARDIAC: Regular rate and rhythm. No murmurs detected. PULMONARY: Bilaterally clear. ABDOMEN: Soft. Minimal tenderness to palpation. Positive bowel sounds. No rebound. No guarding. EXTREMITIES: No clubbing, cyanosis, or edema. NEUROLOGIC: Difficult to assess. Patient does not follow much command and is inconsistent but seems to be able to move all four extremities. ASSESSMENT AND PLAN: This is a 36-year-old female patient with underlying medical history of mental retardation, cerebral palsy, seizure disorder, hypothyroidism, autism, post traumatic stress disorder, irregular menses, presented with back pain, abdominal pain, decrease in appetite, and change in mental status. 1. Abdominal pain, back pain, confusion, history of cerebral palsy, autism, post traumatic stress disorder, mental retardation. Patient shows mild elevation of lipase but has increased. Possibility of pancreatitis has been entertained. Initially given IV fluids and advanced diet, but patient's lipase seems to be increasing. Case discussed with Dr. Ely, gastroenterology. Will make the patient nothing by mouth, but given there is no biliary ductal dilatation, transaminitis, or elevated bilirubin, patient does not need an endoscopic retrograde cholangiopancreatography (ERCP). Recommend nothing by mouth and continue IV fluids. Will repeat lipase. 2. Encephalopathy, etiology unclear. Possible infectious etiology versus pancreatitis versus worsening of patient's baseline cerebral palsy and mental retardation. CT scan shows deep white matter changes, unclear etiology. Family is concerned about waxing and waning mental status. Case discussed with neurology, Dr. Moura, and radiology, Dr. Barnes. Patient's CT scan findings consistent with cerebral palsy. Given patient does not tolerate MRI and will need full anesthesia sedation, would recommend against it given the risk involved. Also case discussed with Dr. Garcias given ESR/CRP is relatively low. Unlikely infectious etiology. Blood culture possibly secondary to contamination. Repeat blood culture has been negative. Patient currently is on nafcillin. Will complete a course. Electroencephalogram (EEG) has been ordered. 3. Pancreatitis. Case discussed with Dr. Ely. Given lipase elevated, will make the patient nothing by mouth, IV fluids. Ultrasound appreciated. Repeat CT scan of the abdomen with contrast has been ordered. 4. Hypovolemic hyponatremia, currently resolved. Continue to monitor. 5. Bacteremia. Case discussed with infectious disease, Dr. Garcias. Possibly given three different organisms on blood culture, likely secondary to contamination. Repeat culture was been negative. Initially on Zosyn and vancomycin, currently on nafcillin. Unknown etiology. Followup echocardiogram. 6. Irregular menses. Followup RESEARCH EDITOR as outpatient. 7. Hepatic hemangioma. Incidental finding. Will need outpatient followup. Unfortunately, for the study, MRI was and without gadolinium will require sedation, which will only offer marginal benefit. Will recommend outpatient followup for further care. Ultrasound has been appreciated. 8. Mental retardation with cerebral palsy and autism. Patient resides at [facility] ([facility]). Supportive care. Continue home medication of Zoloft, Abilify, Prazosin, trazodone, Artane, hydroxyzine, Trileptal, and Tranxene. 9. Gastroesophageal reflux disease (GERD). Continue PPI. 10. Seizure disorder. Continue current medication, Lamictal and Trileptal. 11. Deep vein thrombosis (DVT) prophylaxis. Lovenox subcutaneous. DISPOSITION PLANNING: Pending echo, EEGs, repeat CT scans of the head and abdomen. Case discussed with Dr. Horn, Dr. Barnes, Dr. Garcias, as well as Dr. Ely.
[2017-02-15 22:00] VITALS: BP 136/89
[2017-02-15] MEDS: traZODone 50 MG TAB PO SCH (22:02)
[2017-02-15] MEDS: ONDANSETRON 4MG/2ML VIAL (J2405) IV PRN (22:02)
[2017-02-15] MEDS: lamoTRIgine 100MG TAB PO SCH (22:03)
[2017-02-15] MEDS: PRAZOSIN 1 MG CAP PO SCH (22:04)
[2017-02-15] MEDS: QUEtiapine 300 MG XR TABLET(SEROQUEL XR) PO SCH (22:04)
[2017-02-16] MEDS: NAFCILLIN SOD 2 GM in D5W MINI-BAG PLUS 100 ML IV SCH ×6 (01:06→21:09)
[2017-02-16] MEDS: NS 1,000 ML IV SCH ×4 (01:18→21:12)
[2017-02-16] MEDS: THYROID 30 MG TAB PO SCH (05:59)
[2017-02-16 06:56] LABS: MEAN CORPUSCULAR HEMOGLOBIN 27.9 pg (27.0-33.0); MEAN CORPUSCULAR HGB CONC 33.3 g/dl (32.0-36.5); MEAN CORPUSCULAR VOLUME 83.8 fl (80.0-96.0); RED CELL DISTRIBUTION WIDTH 13.1 % (11.5-14.5); WHITE BLOOD COUNT 3.2 K/mm3 (4.0-10.0)
[2017-02-16 07:12] LABS: ALBUMIN 3.1 GM/DL (3.2-5.2); ALBUMIN/GLOBULIN RATIO 1.19 (1.00-1.93); ALKALINE PHOSPHATASE 66 U/L (45-117); ALT/SGPT 17 U/L (12-78); ANION GAP 10 MEQ/L (8-16); AST/SGOT 14 U/L (15-37); BILIRUBIN,TOTAL 0.5 MG/DL (0.2-1.0); BLOOD UREA NITROGEN 6 MG/DL (7-18); CALCIUM LEVEL 8.8 MG/DL (8.5-10.1); CARBON DIOXIDE LEVEL 28 MEQ/L (21-32); CHLORIDE LEVEL 105 MEQ/L (98-107); GLOMERULAR FILTRATION RATE > 60.0 (>60); GLUCOSE, FASTING 93 MG/DL (70-105); MAGNESIUM LEVEL 2.3 MG/DL (1.8-2.4); POTASSIUM SERUM 3.6 MEQ/L (3.5-5.1); SODIUM LEVEL 143 MEQ/L (136-145); TOTAL PROTEIN 5.7 GM/DL (6.4-8.2)
[2017-02-16] MEDS: MIRALAX *UNIT DOSE* 17GM PACKET PO SCH (11:46)
[2017-02-16] MEDS: SENOKOT S TAB PO SCH ×2 (11:46→21:10)
[2017-02-16] MEDS: TRIHEXYPHENIDYL 2 MG TAB PO SCH ×2 (11:46→21:12)
[2017-02-16] MEDS: CLORAZEPATE 3.75 MG TAB PO SCH (11:47)
[2017-02-16] MEDS: SERTRALINE HCL 50 MG TAB PO SCH (11:47)
[2017-02-16] MEDS: hydrOXYzine 25 MG TAB PO SCH ×4 (11:48→21:12)
[2017-02-16] MEDS: ENOXAPARIN 40 MG/0.4 ML SYRINGE (J1650) SC SCH (11:48)
[2017-02-16] MEDS: OXcarbazepine 300 MG TAB PO SCH (11:48)
[2017-02-16] MEDS: ACETAMINOPHEN TAB 650MG DOSE (2X325MG) PO PRN ×2 (11:59→16:44)
[2017-02-16] MEDS: ONDANSETRON 4MG/2ML VIAL (J2405) IV PRN ×2 (12:24→21:09)
[2017-02-16 14:00] VITALS: BP 132/88
[2017-02-16] MEDS: MORPHINE 2 MG/ML 1ML SYRINGE IV PRN (14:21)
--- NOTE | 2017-02-16 14:54 | REP ---
REASON: Suprapubic pain. No pertinent priors for comparison. Transvesical imaging only was performed. According to the technologist worksheet, transvaginal imaging was withheld due to the patient's nonsexually active status. The uterus measures 5.8 x 2.9 x 3.5 cm. The parenchymal echo pattern is within normal limits. The endometrial echo complex measures 5 mm in its greatest thickness and has a normal appearance. There is no free fluid in the cul-de-sac. Right ovary measures 2.5 x 1.5 x 2.5 cm and is within normal limits with an RI of 0.43. Left ovary measures 3.4 x 1.9 x 2.3 cm and is within normal limits with an RI of 0.53. Urinary bladder measures 11 x 10 x 13 cm. IMPRESSION: Unremarkable pelvic ultrasound. Signed by Antwan Osorio DO 02/16/2017 04:27 P
[2017-02-16] MEDS: OMEPRAZOLE 20 MG CAP PO SCH (16:44)
--- NOTE | 2017-02-16 17:09 | EEG ---
DATE OF PROCEDURE: 02/15/2017 REFERRING PHYSICIAN: Dr. Sourav Robison DIAGNOSIS: Altered mental status. EEG NUMBER: [id number] HISTORY: The patient is a 36-year-old female who is a resident of [facility] and was admitted at [facility] due to altered mental status. This EEG was done to rule out epileptic potential. She is currently on Zosyn, vancomycin, Abilify, Tranxene, Lamictal, Trileptal, quetiapine, etc. TECHNICAL DESCRIPTION: This digital EEG was recorded by 21 scalp, ear and two EKG electrodes and was reviewed in bipolar and referential montages following reformatting in 10-20 international electrode placement system. INTERPRETATION: The patient was noted to be in awake and drowsy states during this EEG. Resting awake background consisted of well-formed posterior dominant rhythm with anterior/posterior gradient comprising of 9 Hz alpha activity measuring 15-40 microvolts in amplitude, which was symmetric and reactive to eye opening. Attenuation of posterior dominant rhythm was seen during transition into drowsiness. Stage I and II sleep were reviewed and were symmetric bilaterally. Hyperventilation could not be performed. Photic stimulation remained unremarkable. Intermittent bilateral temporal slowing was noted in awakefulness and drowsiness. No clear epileptiform abnormalities were seen. No clinical or electrographic seizures were recorded. CONCLUSION: This EEG in awake, drowsy states, stage I and II sleep is mildly abnormal due to presence of intermittent bilateral temporal slowing consistent with focal cortical structural or functional abnormality. No clear epileptiform abnormalities were seen. Clinical correlation is recommended.
[2017-02-16] MEDS: QUEtiapine 300 MG XR TABLET(SEROQUEL XR) PO SCH (21:00)
[2017-02-16] MEDS: lamoTRIgine 100MG TAB PO SCH (21:09)
[2017-02-16] MEDS: PRAZOSIN 1 MG CAP PO SCH (21:10)
[2017-02-16] MEDS: traZODone 50 MG TAB PO SCH (21:10)
--- NOTE | 2017-02-16 21:13 | IPN ---
DATE: 02/16/2017 Patient seen and examined. Continued to report abdominal pain and also reporting hungry. Patient is a very poor historian. Denies any headache, chest pain. Reported symptoms similar to menstrual cramps. No fever documented. Further history limited. VITAL SIGNS: Temperature 99.2, pulse 92, respirations 16, blood pressure 132/88, pulse oximetry 98% on room air. LABORATORY DATA: WBC 3.2, hemoglobin and hematocrit 10.9/32.8, platelets 174. Chemistry: Sodium 143, potassium 3.4, chloride 105, bicarbonate 28, BUN 6, creatinine 0.6, lipase 773. PHYSICAL EXAMINATION: GENERAL: Patient alert, oriented to self and hospital, in no acute distress. Follows simple commands but not very consistent. HEENT: Chronic dysconjugate gaze. Perioral erythema has mostly resolved. Moist mucous membranes. CARDIAC: Regular rate and rhythm. No murmurs detected. PULMONARY: Bilaterally clear. ABDOMEN: Soft. Diffusely tender to palpation. Positive bowel sounds. No rebound. No guarding. EXTREMITIES: No clubbing, cyanosis, or edema. NEUROLOGIC: Difficult to assess. Patient is inconsistently following commands. Seems to move all four extremities. ASSESSMENT AND PLAN: This is a 36-year-old female patient with underlying medical history of mental retardation, cerebral palsy, seizure disorder, hypothyroidism, autism, posttraumatic stress disorder, irregular menses, presented with back pain, abdominal pain, decrease in appetite, and change in mental status. 1. Abdominal pain, back pain, confused, history of cerebral palsy, autism, posttraumatic stress disorder, and mental retardation. Patient shows mild elevation in lipase initially. Has been given IV fluids and diet has been advanced, but lipase has increased. Patient was nothing by mouth yesterday. Currently lipase has improved. Diet has advanced to clear. Possibly secondary to acute pancreatitis. CT scan has been appreciated. Case discussed with Dr. Ely, gastroenterology, regarding patient's management given there is no evidence of biliary ductal dilatation on ultrasound and CT scan with no transaminitis or biliary elevation. Patient does not seem to need endoscopic retrograde cholangiopancreatography (ERCP) at this time. Will recommend management with IV fluids and advance diet as tolerated. Was nothing by mouth yesterday. Repeat lipase. 2. Encephalopathy, etiology unclear. Possible infectious versus pancreatitis versus worsening of patient's baseline cerebral palsy and mental retardation. CT showed deep white matter changes, unclear etiology. Family is concerned about waxing and waning mental status. Case discussed with neurology, Dr. Horn, and neuroradiology, Dr. Barnes. Patient's CT scan, as per Dr. Barnes, is consistent with cerebral palsy. Patient does not tolerate MRI, will need full anesthesia sedation for it, and as per Dr. Barnes and Dr. Horn, given there is obvious reason for patient's encephalopathy, i.e., pancreatitis, will elect not to pursue tests that can potentially cause harm. Also discussed with infectious disease, Dr. Garcias. Erythrocyte sedimentation rate (ESR) and C-reactive protein (CRP) was relatively negative. Unlikely infectious etiology, culture likely contamination. Repeat culture has been negative. Treated with antibiotics, currently is on nafcillin, patient will complete a course. EEG reveals encephalopathy with bitemporal slowing. Herpes titer polymerase chain reaction (PCR) and IgG and IgM have been ordered. 3. Pancreatitis. Case discussed with Dr. Ely. Lipase has improved. Diet advanced to clear. IV fluids. Pelvic ultrasound appreciated for gynecological disorder which was negative as well. Repeat CT appreciated. Will further discuss with Dr. Ely as to what is the next step of the management. 4. Hypovolemia/hyponatremia, currently resolved. Will continue to monitor. 5. Bacteremia. Discussed with infectious diseases, Dr. Garcias. Given that three different organisms on the two blood cultures, likely contamination. Repeat culture has been negative. Zosyn and vancomycin has been switched to nafcillin, patient will complete a course. Followup echocardiogram report. 6. Irregular menses. Followup gynecology (MERCHANDISING SPECIALIST) as outpatient. 7. Hepatic hemangioma. Incidental finding. Will need outpatient followup. Unfortunately, the patient will not tolerate MRI with and without gadolinium, requires sedation, which will only offer marginal benefit. Recommend outpatient followup. Ultrasound has been appreciated. 8. Mental retardation, cerebral palsy, autism. Patient resides at [facility] ([facility]). Supportive care. Continue current medication. 9. Gastroesophageal reflux disease (GERD). Continue proton pump inhibitor (PPI). 10. Seizure disorder. Continue Lamictal and Trileptal. 11. Deep vein thrombosis (DVT) prophylaxis. Lovenox subcutaneous. DISPOSITION: Pending echo. EEG has been appreciated. Case discussed with Dr. Horn, Dr. Barnes, Dr. Garcias, and Dr. Ely. If patient's condition does not improve, might need transfer to tertiary care for definitive gastrointestinal (GI) management.
--- NOTE | 2017-02-16 21:30 | ECHO ---
DATE OF PROCEDURE: 02/15/2017 AGE: 36 GENDER: Female HEIGHT: 60 inches WEIGHT: 103 pounds BODY SURFACE AREA: 1.41 m/s PATIENT LOCATION: Inpatient, [address] [place] [address]. REFERRING PHYSICIAN: Dr. Claudia Luevano INDICATION: Fever. 2-D MEASUREMENTS: RV: 2.1 cm LV: 3.5 cm Septum: 0.8 cm Posterior wall: 0.8 cm Aortic root: 3.0 cm LA: 2.5 cm LVEF: 65% DOPPLER MEASUREMENTS: AV: 0.9 m/s LVOT: 0.60 m/s LVOT diameter: 1.9 cm MV-E: 67, A: 50, EA ratio: 1.3 Early mitral deceleration time: 236 ms E prime: 8.2, A prime 6, E/E prime ratio: 8 PV: 0.87 m/s Pulmonary artery acceleration time: 116 ms PASP: 27 mmHg IVC: 1.5 cm COMMENTS: Normal sinus rhythm without interventricular conduction disturbance. Somewhat challenging study in light of the patient's lack of ability to cooperate ([facility] patient). Normal cardiac chamber sizes and wall thickness. On real-time imaging from the parasternal and apical projections wall motion was symmetrical and hyperkinetic. Normal appearing mitral valvular apparatus and leaflet excursion with no posterior systolic buckling. Three equal size aortic cusps of normal thickness and cusp separation. Normal aortic root size. No apparent intracardiac mass or pericardial effusion. Color flow Doppler study taken from the parasternal and apical projections showed trace mitral, very mild tricuspid and no aortic insufficiency. Guided continuous wave Doppler of her aortic valve showed a normal peak systolic velocity against LV outflow tract obstruction. Pulsed and continuous wave Doppler of her LV inflow tract taken from the apical four-chamber projection showed normal diastolic filling velocities against mitral stenosis. The filling pattern was also within normal limits against LV diastolic dysfunction. Pulsed and continuous wave Doppler of her pulmonary trunk showed a normal peak systolic velocity against RV outflow tract obstruction. Pulmonary artery acceleration time was normal against an elevated pulmonary vascular resistance. We attempted to perform guided continuous wave Doppler of her tricuspid valve to further estimate her right ventricular systolic pressure, but could not get a spectral envelope. Her inferior vena cava was of normal size with normal respiratory collapse against an elevated central venous pressure. CONCLUSIONS: Normal-appearing echocardiogram / Doppler study.
[2017-02-17] MEDS: NAFCILLIN SOD 2 GM in D5W MINI-BAG PLUS 100 ML IV SCH ×6 (00:39→20:52)
[2017-02-17] MEDS: THYROID 30 MG TAB PO SCH (05:03)
[2017-02-17] MEDS: ACETAMINOPHEN TAB 650MG DOSE (2X325MG) PO PRN ×4 (05:10→20:51)
[2017-02-17 06:00] VITALS: BP 135/87
[2017-02-17] MEDS: ENOXAPARIN 40 MG/0.4 ML SYRINGE (J1650) SC SCH (08:47)
[2017-02-17] MEDS: TRIHEXYPHENIDYL 2 MG TAB PO SCH ×2 (08:48→20:50)
[2017-02-17] MEDS: hydrOXYzine 25 MG TAB PO SCH ×4 (08:48→20:51)
[2017-02-17] MEDS: OXcarbazepine 300 MG TAB PO SCH (08:48)
[2017-02-17] MEDS: MIRALAX *UNIT DOSE* 17GM PACKET PO SCH (08:48)
[2017-02-17] MEDS: CLORAZEPATE 3.75 MG TAB PO SCH (08:48)
[2017-02-17] MEDS: SERTRALINE HCL 50 MG TAB PO SCH (08:48)
[2017-02-17] MEDS: SENOKOT S TAB PO SCH ×2 (08:49→20:51)
[2017-02-17] MEDS: NS 1,000 ML IV SCH ×4 (10:38→19:59)
[2017-02-17 10:40] LABS: BASO % 0.4 % (0.0-1.0); EOS # 0.1 K/mm3 (0.0-0.50); EOS % 2.4 % (0.0-3.0); LARGE UNSTAINED CELL # 0.1 K/mm3 (0.0-0.4); LYMPH # 0.9 K/mm3 (1.5-4.5); LYMPH % 25.9 % (24.0-44.0); MEAN CORPUSCULAR HEMOGLOBIN 28.2 pg (27.0-33.0); MEAN CORPUSCULAR HGB CONC 33.1 g/dl (32.0-36.5); MONO # 0.2 K/mm3 (0.0-0.8); MONO % 5.8 % (0.0-5.0); NEUTROPHILS % 63.5 % (36.0-66.0); PLATELET COUNT, AUTOMATED 182 k/mm3 (150-450); RED CELL DISTRIBUTION WIDTH 13.4 % (11.5-14.5); WHITE BLOOD COUNT 3.1 K/mm3 (4.0-10.0)
[2017-02-17 11:01] LABS: ALBUMIN 3.3 GM/DL (3.2-5.2); ALBUMIN/GLOBULIN RATIO 1.38 (1.00-1.93); ALKALINE PHOSPHATASE 68 U/L (45-117); ALT/SGPT 21 U/L (12-78); ANION GAP 7 MEQ/L (8-16); AST/SGOT 15 U/L (15-37); BILIRUBIN,TOTAL 0.5 MG/DL (0.2-1.0); BLOOD UREA NITROGEN 4 MG/DL (7-18); CALCIUM LEVEL 8.7 MG/DL (8.5-10.1); CARBON DIOXIDE LEVEL 31 MEQ/L (21-32); CHLORIDE LEVEL 106 MEQ/L (98-107); CREATININE FOR GFR 0.66 MG/DL (0.55-1.02); GLOMERULAR FILTRATION RATE > 60.0 (>60); GLUCOSE, FASTING 78 MG/DL (70-105); MAGNESIUM LEVEL 2.3 MG/DL (1.8-2.4); POTASSIUM SERUM 3.9 MEQ/L (3.5-5.1); SODIUM LEVEL 144 MEQ/L (136-145); TOTAL PROTEIN 5.7 GM/DL (6.4-8.2)
[2017-02-17 14:00] VITALS: BP 138/93
[2017-02-17] MEDS: OMEPRAZOLE 20 MG CAP PO SCH (15:29)
[2017-02-17] MEDS: lamoTRIgine 100MG TAB PO SCH (20:50)
[2017-02-17] MEDS: QUEtiapine 300 MG XR TABLET(SEROQUEL XR) PO SCH (20:50)
[2017-02-17] MEDS: traZODone 50 MG TAB PO SCH (20:51)
[2017-02-17] MEDS: PRAZOSIN 1 MG CAP PO SCH (20:52)
--- NOTE | 2017-02-17 21:29 | IPN ---
DATE: 02/17/2017 Patient seen and examined. No acute events overnight. Patient at baseline with mental retardation and cerebral palsy and autism, along with posttraumatic stress disorder (PTSD). Limited history, but continues to have abdominal cramping. No period despite the nursing report that there is some minimal spotting. Denies any chest pain, pressure or discomfort. Is tolerating a clear liquid diet. VITAL SIGNS: Temperature 99, pulse 90, respirations 18, blood pressure 138/93, pulse oximetry 100% on room air. LABORATORY DATA: WBC 3.1, hemoglobin and hematocrit 11.2/33.7, platelets 182. Chemistry: Sodium 144, potassium 3.9, chloride 106, bicarbonate 31, BUN 4, creatinine 0.66. PHYSICAL EXAMINATION: GENERAL: Patient alert, oriented to self and hospital, in no acute distress. Follows simple commands but not very consistent. HEENT: Chronic dysconjugate gaze. Perioral erythema has resolved. Moist mucous membranes. CARDIAC: Regular rate and rhythm. No murmurs detected. PULMONARY: Bilaterally clear to auscultation. ABDOMEN: Soft. Diffusely tender to palpation. Positive bowel sounds. No rebound. No guarding. EXTREMITIES: No clubbing, cyanosis, or edema. NEUROLOGIC: Difficult to assess given patient inconsistently follows commands. Seems to move all four extremities without any problem. ASSESSMENT AND PLAN: This is a 36-year-old female patient with underlying medical history of mental retardation, cerebral palsy, seizure disorder, hypothyroidism, autism, posttraumatic stress disorder, irregular menses, presented with back pain, abdominal pain, decrease in appetite, and change in mental status. 1. Abdominal pain, back pain, confused, history of cerebral palsy, autism, posttraumatic stress disorder, and mental retardation. Patient shows mild elevation in lipase initially and has been given IV fluids and diet has been advanced, but lipase has increased. Patient was nothing by mouth yesterday. Currently tolerating clear liquid diet. We will advance to full liquid diet. Currently, lipase has improved. Pain is probably secondary to acute pancreatitis. CT scan has been appreciated. Case discussed with Dr. Ely, gastroenterology, regarding patient's management. There is no evidence of biliary ductal dilatation on ultrasound. CT scan with no transaminitis or biliary elevation. Patient does not seem to need endoscopic retrograde cholangiopancreatography (ERCP) at this time. Will recommend management with IV fluids and advance diet as tolerated. Currently on full liquid diet. Lipase repeat has improved. Triglycerides have been negative. Case also discussed with pharmacy staff, who reviewed all medication lists. Other than Seroquel, which could have potentially precipitated elevated triglycerides leading to pancreatitis and control, which can also increase triglycerides, all other medication does not have profile showing pancreatitis. 2. Encephalopathy, etiology unclear. Possible infectious versus pancreatitis versus worsening of patient's baseline cerebral palsy and mental retardation. CT scan showed deep white matter changes, unclear etiology. Family is concerned about waxing and waning mental status. Case discussed with neurology, Dr. Horn, and neuroradiology, Dr. Barnes. As per Dr. Barnes, the CT scan is consistent with cerebral palsy changes. Patient does not tolerate MRI and needs need full anesthetic sedation for it, and Dr. Barnes and Dr. Horn both believe that at this point the patient will not benefit from MRI and the risks outweighs the benefit. Given that the obvious explanation is metabolic encephalopathy due to pancreatitis, would like not to pursue further testing that could potentially cause harm. Also discussed with infectious disease, Dr. Garcias. Erythrocyte sedimentation rate (ESR) and C-reactive protein (CRP) have been negative. Unlikely infectious etiology, culture possibly contamination. Repeat culture has been negative. The patient is completing a course of antibiotics, currently on nafcillin. EEG shows encephalopathy and bitemporal slowing. HSV workup has also been sent. 3. Pancreatitis. Case discussed with Dr. Ely. Lipase has improved. Advance diet to full liquid. IV fluids. Pelvic ultrasound appreciated and negative for gynecological issues. Repeat CT appreciated. We will further discuss with Dr. Ely as needed for the next step of the management. Discuss with pharmacy, reviewed all medications. Other than Seroquel and the patient's control that can potentially cause hypertriglyceridemia that could potentially induce pancreatitis, all other medication does not have known cause of pancreatitis. The patient's triglycerides have been negative on admission. 4. Hypovolemia/hyponatremia, currently resolved. Continue to monitor. 5. Bacteremia. Case discussed with infectious diseases, Dr. Garcias. Given that three different organisms on two blood cultures, likely contaminant. Repeat culture has been negative. Zosyn and vancomycin has been switched to nafcillin, patient will complete a course. Echocardiogram appreciated. 6. Irregular menses. Continue control. Followup with HISTORIAN RESEARCH ASSISTANT as an outpatient. 7. Hepatic hemangioma. Incidental finding. Will need outpatient followup. Unfortunately, the patient will not tolerate MRI with and without gadolinium without sedation, but the findings will only offer marginal benefit. Recommend outpatient followup. Ultrasound has been appreciated. 8. Mental retardation, cerebral palsy, autism. Patient resides at [facility] ([facility] Supportive care. Continue current medication. 9. Gastroesophageal reflux disease (GERD). Continue proton pump inhibitor (PPI). 10. Seizure disorder. Continue Lamictal and Trileptal. 11. Deep vein thrombosis (DVT) prophylaxis. Lovenox subcutaneous. DISPOSITION: Pending clinical improvement. Diet has been advanced. Case has been discussed with Dr. Horn, Dr. Barnes, Dr. Garcias, and Dr. Ely. If patient does not improve, might need transfer to tertiary care center for gastrointestinal (GI) support.
[2017-02-17 22:00] VITALS: BP 135/88
[2017-02-18] MEDS: NAFCILLIN SOD 2 GM in D5W MINI-BAG PLUS 100 ML IV SCH ×3 (00:12→08:00)
[2017-02-18] MEDS: NS 1,000 ML IV SCH (02:40)
[2017-02-18] MEDS: ACETAMINOPHEN TAB 650MG DOSE (2X325MG) PO PRN ×4 (04:08→19:52)
[2017-02-18] MEDS: THYROID 30 MG TAB PO SCH (04:08)
[2017-02-18 06:00] VITALS: BP 119/92
[2017-02-18 06:36] LABS: MEAN CORPUSCULAR HEMOGLOBIN 28.6 pg (27.0-33.0); MEAN CORPUSCULAR HGB CONC 33.6 g/dl (32.0-36.5); MEAN CORPUSCULAR VOLUME 85.3 fl (80.0-96.0); RED CELL DISTRIBUTION WIDTH 13.2 % (11.5-14.5); WHITE BLOOD COUNT 2.8 K/mm3 (4.0-10.0)
[2017-02-18 06:41] LABS: ALKALINE PHOSPHATASE 65 U/L (45-117); ALT/SGPT 19 U/L (12-78); ANION GAP 10 MEQ/L (8-16); AST/SGOT 14 U/L (15-37); BILIRUBIN,TOTAL 0.5 MG/DL (0.2-1.0); BLOOD UREA NITROGEN 4 MG/DL (7-18); CALCIUM LEVEL 8.4 MG/DL (8.5-10.1); CARBON DIOXIDE LEVEL 28 MEQ/L (21-32); CHLORIDE LEVEL 106 MEQ/L (98-107); GLOMERULAR FILTRATION RATE > 60.0 (>60); GLUCOSE, FASTING 89 MG/DL (70-105); MAGNESIUM LEVEL 2.1 MG/DL (1.8-2.4); POTASSIUM SERUM 3.8 MEQ/L (3.5-5.1); SODIUM LEVEL 144 MEQ/L (136-145); TOTAL PROTEIN 5.5 GM/DL (6.4-8.2)
[2017-02-18] MEDS: SENOKOT S TAB PO SCH ×2 (09:00→20:15)
[2017-02-18] MEDS: TRIHEXYPHENIDYL 2 MG TAB PO SCH ×2 (09:16→23:03)
[2017-02-18] MEDS: OXcarbazepine 300 MG TAB PO SCH (09:16)
[2017-02-18] MEDS: hydrOXYzine 25 MG TAB PO SCH ×4 (09:16→20:16)
[2017-02-18] MEDS: ENOXAPARIN 40 MG/0.4 ML SYRINGE (J1650) SC SCH (09:16)
[2017-02-18] MEDS: CLORAZEPATE 3.75 MG TAB PO SCH (09:16)
[2017-02-18] MEDS: SERTRALINE HCL 50 MG TAB PO SCH (09:16)
[2017-02-18] MEDS: CEFDINIR 300 MG CAP (OMNICEF) PO SCH ×2 (10:39→20:16)
[2017-02-18 14:00] VITALS: BP 124/79
[2017-02-18] MEDS: OMEPRAZOLE 20 MG CAP PO SCH (16:21)
[2017-02-18] MEDS: QUEtiapine 300 MG XR TABLET(SEROQUEL XR) PO SCH (20:15)
[2017-02-18] MEDS: lamoTRIgine 100MG TAB PO SCH (20:16)
[2017-02-18] MEDS: traZODone 50 MG TAB PO SCH (20:16)
[2017-02-18] MEDS: PRAZOSIN 1 MG CAP PO SCH (20:16)
[2017-02-18] MEDS: TRI SPRINTEC PO SCH (20:17)
[2017-02-18 22:00] VITALS: BP 147/97
--- NOTE | 2017-02-18 22:16 | IPN ---
DATE: 02/18/2017 Patient seen and examined. No acute events overnight. Tolerating orally at this point. The patient is a very poor historian given history of mental retardation, cerebral palsy, posttraumatic stress disorder (PTSD) and autism. Case discussed with [facility] ([facility]) staff, who reported that the patient currently could do most of daily functioning if encouraged. The patient denies any chest pain, pressure or discomfort. Continues to report abdominal pain, but the patient is a poor historian. VITAL SIGNS: Temperature 98.3, pulse 107, respirations 18, blood pressure 124/79, pulse oximetry 96% on room air. LABORATORY DATA: WBC 2.8, hemoglobin and hematocrit 10.9/32.4, platelets 170. Chemistry: Sodium 144, potassium 3.8, chloride 106, bicarbonate 28, BUN 4, creatinine 0.6, lipase down to 636. PHYSICAL EXAMINATION: GENERAL: Patient alert, oriented to self and hospital, in no acute distress. Follows simple commands but not very consistent. HEENT: Chronic dysconjugate gaze. Moist mucous membranes. CARDIAC: Regular rate and rhythm. No murmurs detected. PULMONARY: Bilaterally clear to auscultation. ABDOMEN: Soft. No rebound. No guarding. Difficult to assess for tenderness given the patient is a poor historian. Positive bowel sounds. EXTREMITIES: No clubbing, cyanosis, or edema. NEUROLOGIC: Difficult to assess given patient inconsistently follows commands but seems to move all four extremities. ASSESSMENT AND PLAN: This is a 36-year-old female patient with underlying medical history of mental retardation, cerebral palsy, seizure disorder, hypothyroidism, autism, posttraumatic stress disorder, irregular menses, presented with back pain, abdominal pain, decrease in appetite, and change in mental status. 1. Abdominal pain, back pain, confused, history of cerebral palsy, autism, posttraumatic stress disorder, and mental retardation. Patient's lipase has been improved. Was treated with IV fluids. Diet has been advanced currently to a regular diet. Pain is probably secondary to pancreatitis. CT scan has been appreciated. Case discussed with Dr. Ely, who agrees with current management. No evidence of biliary ductal dilatation on ultrasound. CT scan with no transaminitis or biliary elevation. Patient does not seem to need endoscopic retrograde cholangiopancreatography (ERCP), as per Dr. Ely. We will recommend continue current treatment as above. Patient is tolerating diet. Tolerating oral fluids. IV fluids have been discontinued. Triglycerides have been negative. Case discussed with pharmacy staff. As mentioned in previous note, other than Seroquel and control, no significant risk factors for pancreatitis and mechanism of action for Seroquel and control is increase in triglycerides and causing pancreatitis, but the patient has normal triglycerides. 2. Encephalopathy, etiology unclear. Possible secondary to pancreatitis. Baseline cerebral palsy, mental retardation. CT scan showed deep white matter changes, unclear etiology. Family was concerned about waxing and waning mental status. Case discussed with neurology, Dr. Horn, and neuroradiology, Dr. Barnes. As per Dr. Barnes, the CT scan is consistent with cerebral palsy changes. Patient does not tolerate MRI and needs full anesthetic sedation. As per Dr. Barnes and Dr. Horn, who both believe that at this point the patient will not benefit from MRI and the risks outweighs the benefit. EEG shows encephalopathy and bitemporal slowing. Possibly associated with cerebral palsy. HSV workup has also been sent. C-reactive also has been negative. Therefore, making infectious etiology unlikely. Case was discussed with Dr. Garcias. Repeat culture has been negative. Patient treated sufficiently with antibiotic. 3. Pancreatitis. Case discussed with Dr. Ely. Lipase has been improving. Advance diet to soft. IV fluids discontinued. Pelvic ultrasound negative for gynecological issues. Repeat CT appreciated. Triglycerides have been negative. 4. Hypovolemia/hyponatremia, currently resolved. Continue to monitor. 5. Bacteremia. Case discussed with infectious diseases, Dr. Garcias. Given that three different organisms on two blood cultures, likely contaminant. Repeat blood culture has been negative. Initially on Zosyn and vancomycin has been switched to nafcillin oral antibiotic. Echocardiogram appreciated. Will complete antibiotic course. 6. Irregular menses. Continue control. Followup with UNIVERSAL WINDING MACHINE OPERATOR as an outpatient. 7. Hepatic hemangioma. Incidental finding. Will need outpatient followup. Unfortunately, the patient will not tolerate MRI with and without gadolinium without sedation, but the findings will only offer marginal benefit. Therefore, recommend outpatient followup. Ultrasound has been appreciated. 8. Mental retardation, cerebral palsy, autism. Patient resides at [facility] ([facility] Supportive care. Continue current medication. 9. Gastroesophageal reflux disease (GERD). Continue proton pump inhibitor (PPI). 10. Seizure disorder. Continue Lamictal and Trileptal. 11. Deep vein thrombosis (DVT) prophylaxis. Lovenox subcutaneous. Venodyne sequential compression device (SCD). DISPOSITION: Pending clinical improvement. Case has been discussed with Dr. Horn, Dr. Barnes, Dr. Garcias, and Dr. Ely. Consider transferring to tertiary care center if the patient does not improve.
[2017-02-19] VITALS (11 sets, daily range): BP systolic 114–180; BP diastolic 66–111
[2017-02-19] MEDS: THYROID 30 MG TAB PO SCH (06:03)
[2017-02-19] MEDS: ACETAMINOPHEN TAB 650MG DOSE (2X325MG) PO PRN ×2 (06:04→16:14)
[2017-02-19 06:11] LABS: MEAN CORPUSCULAR HEMOGLOBIN 29.2 pg (27.0-33.0); MEAN CORPUSCULAR HGB CONC 34.6 g/dl (32.0-36.5); MEAN CORPUSCULAR VOLUME 84.5 fl (80.0-96.0); RED CELL DISTRIBUTION WIDTH 13.2 % (11.5-14.5); WHITE BLOOD COUNT 5.3 K/mm3 (4.0-10.0)
[2017-02-19 06:31] LABS: ALBUMIN 3.1 GM/DL (3.2-5.2); ALBUMIN/GLOBULIN RATIO 1.11 (1.00-1.93); ALKALINE PHOSPHATASE 75 U/L (45-117); ALT/SGPT 23 U/L (12-78); ANION GAP 9 MEQ/L (8-16); AST/SGOT 16 U/L (15-37); BILIRUBIN,TOTAL 0.4 MG/DL (0.2-1.0); BLOOD UREA NITROGEN 6 MG/DL (7-18); CALCIUM LEVEL 9.3 MG/DL (8.5-10.1); CARBON DIOXIDE LEVEL 28 MEQ/L (21-32); CHLORIDE LEVEL 99 MEQ/L (98-107); CREATININE FOR GFR 0.56 MG/DL (0.55-1.02); GLOMERULAR FILTRATION RATE > 60.0 (>60); GLUCOSE, FASTING 97 MG/DL (70-105); MAGNESIUM LEVEL 2.1 MG/DL (1.8-2.4); POTASSIUM SERUM 3.6 MEQ/L (3.5-5.1); SODIUM LEVEL 136 MEQ/L (136-145); TOTAL PROTEIN 5.9 GM/DL (6.4-8.2)
[2017-02-19] MEDS ORDERED: LORazepam 2 MG/ML VIAL (J2060) IV STA ×2 (06:35→06:47)
[2017-02-19] MEDS ORDERED: LORazepam 2 MG/ML VIAL (J2060) IM STA ×2 (06:36→06:44)
[2017-02-19] MEDS ORDERED: levETIRAcetam INJection 1,000 MG in D5W 100 ML IV ONE ×4 (06:45)
[2017-02-19] MEDS: NS 1,000 ML IV SCH ×2 (07:00→13:47)
--- NOTE | 2017-02-19 10:57 | REP ---
AP PORTABLE CHEST: 02/19/2017. Comparison: 02/11/2017, 09/23/2014. Clinical history: Rule out aspiration. Findings: Lungs are hypoinflated in this portable supine chest. There is subsegmental atelectatic change peripherally in the right mid lower lung zone and some infrahilar subsegmental atelectasis bilaterally. I do not see dense consolidation with air bronchograms. No hazy opacity over the lung espinal to suggest a layering pleural effusion. Heart, mediastinal and hilar contours grossly unremarkable. Bones intact. Impression: 1. Infrahilar subsegmental bilateral atelectatic change and peripheral right base subsegmental atelectasis. No dense consolidation with air bronchograms nor layering effusion. No other finding. Signed by Femi Allen MD 02/19/2017 05:59 P
[2017-02-19 12:37] LABS: ANION GAP 5 MEQ/L (8-16); BLOOD UREA NITROGEN 5 MG/DL (7-18); CALCIUM LEVEL 8.8 MG/DL (8.5-10.1); CARBON DIOXIDE LEVEL 31 MEQ/L (21-32); CHLORIDE LEVEL 101 MEQ/L (98-107); CREATININE FOR GFR 0.71 MG/DL (0.55-1.02); GLOMERULAR FILTRATION RATE > 60.0 (>60); GLUCOSE, FASTING 96 MG/DL (70-105); MAGNESIUM LEVEL 1.9 MG/DL (1.8-2.4); POTASSIUM SERUM 3.5 MEQ/L (3.5-5.1); SODIUM LEVEL 137 MEQ/L (136-145)
[2017-02-19 12:42] LABS: MEAN CORPUSCULAR HEMOGLOBIN 28.6 pg (27.0-33.0); MEAN CORPUSCULAR VOLUME 84.1 fl (80.0-96.0); RED CELL DISTRIBUTION WIDTH 13.1 % (11.5-14.5); WHITE BLOOD COUNT 8.5 K/mm3 (4.0-10.0)
[2017-02-19] MEDS: hydrOXYzine 25 MG TAB PO SCH ×4 (13:00→22:52)
[2017-02-19] MEDS: TRIHEXYPHENIDYL 2 MG TAB PO SCH ×2 (13:44→22:51)
[2017-02-19] MEDS: OXcarbazepine 300 MG TAB PO SCH ×2 (13:46→22:55)
[2017-02-19] MEDS: SERTRALINE HCL 50 MG TAB PO SCH (13:46)
[2017-02-19] MEDS: CLORAZEPATE 3.75 MG TAB PO SCH (13:46)
[2017-02-19] MEDS: SENOKOT S TAB PO SCH ×2 (13:46→22:54)
[2017-02-19] MEDS: ENOXAPARIN 40 MG/0.4 ML SYRINGE (J1650) SC SCH (13:47)
[2017-02-19] MEDS ORDERED: POTASSIUM CHLORIDE 10 MEQ SR TABLET PO ONE (14:15)
--- NOTE | 2017-02-19 14:55 | IPN ---
DATE: 02/19/2017 The patient is seen and examined. No acute events overnight. The patient had an episode of tonic-clonic seizure lasting about one minute in the morning, followed by two small, one lasting a couple of seconds, occurred around 6:00 o'clock this morning. She was given Ativan 2 mg and Keppra 1000 mg. Currently, postictal, sleeping comfortable, in no acute distress. Further history limited. The patient moves all four extremities to withdraw from pain. VITAL SIGNS: Temperature 99.6, pulse 80, respirations 16, blood pressure 170/111, pulse oximetry 99% on room air. LABORATORY DATA: WBC 8.5, hemoglobin and hematocrit 11.9/35, platelets 209. Chemistry: Sodium 139, potassium 3.5, chloride 101, bicarbonate 31, BUN 5, creatinine 0.7. PHYSICAL EXAMINATION: GENERAL: Patient arousable, withdraws from pain, in no acute distress, comfortable, sleeping. HEENT: Chronic dysconjugate gaze. Moist mucous membranes. CARDIAC: Regular rate and rhythm with normal S1, S2. PULMONARY: Bilaterally clear to auscultation. ABDOMEN: Soft, nontender. Positive bowel sounds. EXTREMITIES: No clubbing, cyanosis, or edema. NEUROLOGIC: Difficult to assess, comfortable, sleeping, all four extremities withdraw from pain. ASSESSMENT AND PLAN: This is a 36-year-old female patient with underlying medical history of mental retardation, cerebral palsy, seizure disorder, hypothyroidism, autism, posttraumatic stress disorder, and irregular menses who presented with back pain, decrease in appetite and change in mental status initially, treated for acute pancreatitis. Hospital course complicated with a breakthrough seizure. PROBLEM LIST: 1. Breakthrough seizure. The patient is currently on Lamictal, Trileptal, monitored in the intensive care unit (ICU), neurology checks, seizure precautions. Neurology has been consulted. EEG has been appreciated during this hospital stay but that is prior to the seizure event. Possibly etiology, as per family last year around summer the patient also had an episode of seizure and it seems to be a yearly event in the summer. Possible alternative etiology given antibiotics can potentially lower seizure threshold. 2. Abdominal pain and back pain, confused at presentation, history of cerebral palsy, autism, posttraumatic stress disorder, and mental retardation. The patient's lipase has improved remarkably. Prior to the seizure, patient tolerating diet. We will continue the diet once the patient is more responsive. Pain is probably secondary to pancreatitis. CT scan has been appreciated along with CT scan repeat. Case discussed with Dr. Ely. Given there is no ductal dilatation, transaminitis or biliary elevation, the patient does not need an endoscopic retrograde cholangiopancreatography (ERCP). The patient is currently tolerating diet. Pain medication as described. 3. Encephalopathy, etiology unclear, possibly secondary to pancreatitis, baseline cerebral palsy, mental retardation. CT scan shows deep white matter changes, unclear etiology. Family was concerned about waxing and waning mental status. Case discussed with neurology, Dr. Horn, and neuroradiology, Dr. Barnes. As per Dr. Barnes, CT scan finding is consistent with cerebral palsy. Patient does not tolerate MRI and needs full anesthesia. As per Dr. Barnes and Dr. Horn, who believe that at this point the patient will not benefit from MRI, the risks outweighs the benefit, and the CT finding is most likely cerebral palsy. Also, EEG shows encephalopathy with bitemporal slowing, possibly associated with cerebral palsy. Herpes symplex virus (HSV) workup has been sent. C-reactive also has been negative, therefore making infectious etiology unlikely. Case was discussed with Dr. Garcias. Repeat culture has been negative. Patient had been sufficiently treated with antibiotics. Neurology has been on consult. 4. Pancreatitis. Case discussed with Dr. Ely. Lipase has improved remarkably. Prior to the seizure, patient tolerating diet. IV as needed. Pelvic ultrasound appreciated, negative for gynecological issues. Repeat CT scan appreciated. Triglycerides have been negative. Lipase has improved. 5. Hypovolemia/hyponatremia, resolved. 6. Bacteremia. Case discussed with infectious diseases, Dr. Garcias. Given that there are three different organisms on two cultures, likely contaminations. Repeat blood culture has been negative. The patient sufficiently treated initially with Zosyn and vancomycin, later switched to nafcillin. Echocardiogram appreciated. The patient completed antibiotic course. 7. Irregular menses. Continue control. Outpatient gynecology (PHYSICS PROFESSOR) followup. 8. Hepatic hemangioma. Incidental finding. Will need outpatient followup. Unfortunately, the patient does not tolerate MRI with and without gadolinium for confirmation of diagnosis without sedation, but at this time, the risk of full sedation outweighs the benefit. Therefore, we will recommend outpatient followup. Ultrasound appreciated. 9. Mental retardation, cerebral palsy, autism. The patient resides at [facility] ([facility] Supportive care. Continue current medication. 10. Gastroesophageal reflux disease (GERD). Continue proton pump inhibitor (PPI). 11. Seizure disorder. Continue Lamictal and Trileptal. 12. Deep vein thrombosis (DVT) prophylaxis. Lovenox subcutaneous, sequential compression device. DISPOSITION: Pending clinical improvement, seizure precautions, neurology consulted, supportive care, clinical improvement. Case discussed with Dr. oHrn, Dr. Barnes, Dr. Garcias, and Dr. Ely.
[2017-02-19] MEDS: OMEPRAZOLE 20 MG CAP PO SCH (16:02)
[2017-02-19] MEDS ORDERED: FLUCONAZOLE 100 MG TAB PO ONE (20:00)
[2017-02-19] MEDS ORDERED: levETIRAcetam INJection 750 MG in D5W 100 ML IV SCH (21:00)
[2017-02-19] MEDS ORDERED: LEVEMIR (INSULIN DETEMIR) 1 UNITS/0.01ML SC SCH (21:00)
--- NOTE | 2017-02-19 22:51 | CR ---
DATE OF CONSULTATION: 02/19/3027 REFERRING PROVIDER: Dr. Claudia Luevano. REASON FOR CONSULTATION: Breakthrough seizure. HISTORY OF PRESENT ILLNESS: Doris Quan is a 36-year-old female with past medical history significant for mental retardation, seizure disorder, not currently following in the neurology clinic, presenting to [facility] with decreased appetite, abdominal pain, lethargy, found to be having pancreatitis. During the hospital stay, the patient has gradually had improvement in her pancreatitis. Earlier in the day, the patient had a generalized tonic-clonic seizure. The last generalized tonic-clonic seizure was 12/26/2015. She had two small possible complex partial seizures today as well. She was given Ativan and loaded with Keppra 750 mg and has been maintained on that twice a day. The patient's Trileptal does have side effect profile to potentially cause pancreatitis. I have discussed with the patient's sister and healthcare proxy, Lary Schwarz, to probably have the patient reduce Trileptal gradually over the next week and discontinue, and continue Keppra 750 by mouth twice a day, Tranxene 7.5 mg by mouth daily, and Lamictal 200 mg by mouth at bedtime for seizure management. The patient may need a repeat electroencephalogram (EEG). Prior EEG showed encephalopathy. The patient is currently back to her baseline state. Her pain in her abdomen is improved. She has a longstanding history of seizures. PAST MEDICAL HISTORY: 1. Mental retardation. 2. Seizure disorder. 3. Cerebral palsy. 4. Hypothyroidism. 5. Autism. 6. Posttraumatic stress disorder (PTSD). 7. Irregular menses. PAST SURGICAL HISTORY: Left leg surgery, tooth extraction. SOCIAL HISTORY: The patient does not use any tobacco, alcohol or illicit drugs. FAMILY HISTORY: Noncontributory. ALLERGIES: No known drug allergies. MEDICATIONS AT HOME: - Trinessa control pill by mouth daily - Abilify 5 mg by mouth twice a day - Tranxene 7.5 mg by mouth daily - hydroxyzine 25 mg by mouth four times a day - lamotrigine 150 mg by mouth daily - lamotrigine 200 mg by mouth at bedtime - omeprazole 40 mg by mouth at bedtime - Trileptal 300 mg by mouth daily - Prazosin 2 mg by mouth at bedtime - quetiapine 600 mg by mouth at bedtime - sertraline 50 mg by mouth daily - [place] thyroid 60 mg by mouth daily - trazodone 50 mg by mouth at bedtime - trihexyphenidyl 2 mg by mouth twice a day REVIEW OF SYSTEMS: Unable to obtain although the patient is close to her baseline state as per her healthcare proxy, Lary Schwarz, who is her sister. PHYSICAL EXAMINATION: Current height 5 feet 0 inches, current weight is 47.2 kg. The patient is currently afebrile. Blood pressure is normotensive, respiratory rate 18, oxygenation 100% on room air. The patient is oriented to her name. She can track with her eyes. She is noted to move all four extremities. She demonstrates reasonable strength in all four extremities. She does not fully cooperate in examination. Pupils are round and reactive to light. Tongue appears midline. Facial symmetry is preserved to activation. Hearing subjectively equal to finger rub. There is normal tone in the upper and lower extremities. There are increased deep tendon reflexes in all four extremities. Sensory is intact to light touch throughout. Romberg testing deferred. Limited exam due to impaired cooperation. ASSESSMENT: A 36-year-old female with history of seizure disorder with breakthrough seizure in the setting of antibiotics to treat underlying infection and pancreatitis. PLAN: 1. Agree with continuation of Keppra 750 mg by mouth twice a day. Continue Tranxene 7.5 mg by mouth daily. Continue [id number] mg every morning, 200 mg every evening. 2. Gradually reduce dosage of Trileptal from 300 mg daily, down to 200 mg daily for three days, then 100 mg daily for three days and discontinue. 3. Can repeat EEG due to most recent seizure. 4. Continue supportive care for underlying pancreatitis. History obtained from the patient's health care proxy, Lary Schwarz.
[2017-02-19] MEDS: traZODone 50 MG TAB PO SCH (22:52)
[2017-02-19] MEDS: lamoTRIgine 100MG TAB PO SCH (22:53)
[2017-02-19] MEDS: PRAZOSIN 1 MG CAP PO SCH (22:54)
[2017-02-19] MEDS: TRI SPRINTEC PO SCH (22:54)
[2017-02-19] MEDS: QUEtiapine 300 MG XR TABLET(SEROQUEL XR) PO SCH (23:28)
[2017-02-20] VITALS (7 sets, daily range): BP systolic 108–130; BP diastolic 68–82
[2017-02-20] MEDS: ANUSOL HC CREAM 30GM TOP SCH ×2 (01:36→09:29)
[2017-02-20 05:19] LABS: MEAN CORPUSCULAR HEMOGLOBIN 28.5 pg (27.0-33.0); MEAN CORPUSCULAR VOLUME 83.9 fl (80.0-96.0); RED CELL DISTRIBUTION WIDTH 13.5 % (11.5-14.5); WHITE BLOOD COUNT 7.2 K/mm3 (4.0-10.0)
[2017-02-20 05:44] LABS: ALBUMIN 3.1 GM/DL (3.2-5.2); ALBUMIN/GLOBULIN RATIO 1.03 (1.00-1.93); ALKALINE PHOSPHATASE 80 U/L (45-117); ALT/SGPT 35 U/L (12-78); ANION GAP 8 MEQ/L (8-16); AST/SGOT 30 U/L (15-37); BILIRUBIN,TOTAL 0.4 MG/DL (0.2-1.0); BLOOD UREA NITROGEN 13 MG/DL (7-18); CALCIUM LEVEL 8.8 MG/DL (8.5-10.1); CARBON DIOXIDE LEVEL 27 MEQ/L (21-32); CHLORIDE LEVEL 107 MEQ/L (98-107); CREATININE FOR GFR 0.59 MG/DL (0.55-1.02); GLOMERULAR FILTRATION RATE > 60.0 (>60); GLUCOSE, FASTING 96 MG/DL (70-105); MAGNESIUM LEVEL 2.2 MG/DL (1.8-2.4); SODIUM LEVEL 142 MEQ/L (136-145); TOTAL PROTEIN 6.1 GM/DL (6.4-8.2)
[2017-02-20] MEDS: NS 1,000 ML IV SCH ×2 (06:01→14:12)
[2017-02-20] MEDS: THYROID 30 MG TAB PO SCH (06:07)
[2017-02-20] MEDS: SENOKOT S TAB PO SCH ×2 (09:26→20:42)
[2017-02-20] MEDS: ENOXAPARIN 40 MG/0.4 ML SYRINGE (J1650) SC SCH (09:26)
[2017-02-20] MEDS: SERTRALINE HCL 50 MG TAB PO SCH (09:26)
[2017-02-20] MEDS: levETIRAcetam 250MG TABLET (KEPPRA) PO SCH ×2 (09:26→20:40)
[2017-02-20] MEDS: hydrOXYzine 25 MG TAB PO SCH ×4 (09:28→20:42)
[2017-02-20] MEDS: TRIHEXYPHENIDYL 2 MG TAB PO SCH ×2 (09:28→20:41)
[2017-02-20] MEDS: FLUCONAZOLE 100 MG TAB PO SCH (09:28)
[2017-02-20] MEDS: CLORAZEPATE 3.75 MG TAB PO SCH (09:37)
[2017-02-20] MEDS: OXcarbazepine 150 MG TAB PO SCH (09:48)
--- NOTE | 2017-02-20 11:56 | CR.PDOC ---
[facility] Consultation Consultation DATE OF CONSULTATION: 02/20/2017 at 08:30 AM Patient examined at 9:15 am. REFERRING PROVIDER: Claudia Torres ATTENDING PHYSICIAN: Claudia Torres REASON FOR CONSULTATION/CHIEF COMPLAINT: Abnormal Lipase level. HISTORY OF PRESENT ILLNESS: 36-year-old Woman with history of mental retardation / Cerebral palsy, seizure disorder, was admitted for complaints of poor oral intake and possible abdominal pain. Patient was noted to have elevated lipase and GI was consulted for the same. Patient due to her mental status only follows certain simple commands but not able to give any history. As per EMR records and patient attendant - she had a break through seizure and her medications are being adjusted as per neurology. Patient did not have any nausea and vomiting and able to tolerated her breakfast today. ALLERGIES: Please see below. HOME MEDICATIONS: reviewed in EMR. PAST MEDICAL HISTORY: As above. PAST SURGICAL HISTORY: h/o tooth extraction and knee surgery as per EMR. FAMILY HISTORY: Unknown. SOCIAL HISTORY: Lives in a facility and needs assistance with ADLs. No h/o smoking, alcohol or drugs. Prior H/o endoscopies: NO prior GI endoscopies in [facility]. Prior GI eval: none in [facility]. REVIEW OF SYSTEMS: Patient could not provide any Review of systems due to her mental status. Denies any active symptoms. PHYSICAL EXAMINATION: VITAL SIGNS: Reviewed in EMR. GENERAL APPEARANCE: Moderely built and moderately nourished. HEENT: No pallor or icterus. normal pupils bilaterally and reactive to light. RESPIRATORY: No wheezing. CARDIOVASCULAR: S1 and S2 heard. No murmurs ABDOMEN: Soft, Mild tenderness in left upper quadrant ( not consistent on repeat exam). No epigastric tenderness, no rigidity or guarding, normal bowel sounds. EXTREMITIES: No pedal edema. NEUROLOGICAL: Alert and awake and follows simple commands. Does not interact or engage in conversation. LABORATORY DATA: Reviewed in EMR - Normal amylase with isolated elevated lipase. - Normal CT scan abdomen ( Done twice with contrast in this admission). - Low albumin and protein - Rest normal LFTs. ASSESSMENT: 1. Isolated elevated lipase with normal CT scan and non typical abdominal pain with normal renal function -- likely non pancreatic source of lipase. ( especially as amylase is normal). 2. Poor oral intake with left sided abdominal pain - USG -showed no biliary problems. DDx- r/o dyspepsia vs H. pyloi infection vs constipation. 3. Mild normocytic anemia - needs further work up to r/o iron deficiency vs hemolysis. Recommendations: - In view of isolated elevated lipase with normal pancreas on imaging - unlikely pancreatitis. r/o oral or dental infection. - Obtain complete anemia work up - Serum Iron, UIBC, Ferritin, folate and vitamin B12, haptoglobin, LDH, peripheral smear with reticulocyte count. - Adequate oral and IV hydration. - Change the omeprazole dosing to 40 mg daily - bean weigher on empty stomach 1 /2 hour prior to breakfast. Give for a course of 6 weeks. - Obtain stool H. pylori antigen testing and treat if positive. - Assisted feeding and calorie counting. - nutrition supplements - protein supplementation. - Give colace 100 mg 2 - 3 times day for avoiding constipation. - Follow up neurology recommendations. -- Recall GI if any change in status or patient has poor oral intake with low calorie count to review for alternative mean of feeding. The plan of care is discussed with the consulting provider and patient attendant. Allergies Coded Allergies: No Known Drug Allergy (Unverified Allergy, Unknown, 10/16/12) Home Medications Scheduled (Trinessa 0.18/0.215/0.25 mg-35 Mcg) 1 Tab Tab, 1 TAB PO DAILY, (Reported) Aripiprazole (Abilify) 5 Mg Tab, 5 MG PO BID, (Reported) Clorazepate Dipotassium (Tranxene T) 7.5 Mg Tab, 7.5 MG PO DAILY, (Reported) Hydroxyzine HCl (Hydroxyzine HCl) 25 Mg Tab, 25 MG PO QID, (Reported) Lamotrigine (Lamictal) 150 Mg Tab, 150 MG PO DAILY, (Reported) Lamotrigine (Lamictal) 200 Mg Tab, 200 MG PO QHS, (Reported) Omeprazole (Omeprazole) 40 Mg Cap, 40 MG PO QPM, (Reported) TAKES AT 1600 Oxcarbazepine (Oxcarbazepine) 300 Mg Tab, 300 MG PO DAILY, (Reported) Prazosin HCl (Minipress) 2 Mg Cap, 2 MG PO QHS, (Reported) Quetiapine Fumarate (Seroquel Xr) 300 Mg [place], 600 MG PO QHS, (Reported) Sertraline Hcl (Zoloft) 50 Mg Tab, 50 MG PO DAILY, (Reported) Thyroid ([place] Thyroid) 60 Mg Tab, 60 MG PO DAILY, (Reported) Trazodone HCl (Trazodone HCl) 50 Mg Tab, 150 MG PO QHS, (Reported) Trihexyphenidyl HCl (Trihexyphenidyl HCl) 2 Mg Tab, 1 MG PO BID, (Reported) HERRERA MALIK MD Feb 20, 2017 11:19
[2017-02-20] MEDS: OMEPRAZOLE 20 MG CAP PO SCH (16:38)
--- NOTE | 2017-02-20 18:12 | IPN ---
DATE: 02/20/2017 The patient is seen and examined. No acute events overnight. No additional seizures overnight. Currently tolerating oral. Denies any chest pain or abdominal pain. Further history is limited based on patients baseline The patient had an episode of tonic-clonic seizure lasting about one minute in the morning, followed by two small, one lasting a couple of seconds, occurred around 6:00 o'clock this morning. She was given Ativan 2 mg and Keppra 1000 mg. Currently, postictal, sleeping comfortable, in no acute distress. Further history limited due to patient's underlying medical condition. VITAL SIGNS: Temperature 97.7, pulse 107, respirations 19, blood pressure 117/72, pulse oximetry 100% on room air. LABORATORY DATA: WBC 7.2, hemoglobin and hematocrit 11/32.3, platelets 207. Chemistry: Sodium 142, potassium 4, chloride 107, bicarbonate 27, BUN 13, creatinine 0.59. PHYSICAL EXAMINATION: GENERAL: Patient alert, comfortable, in no acute distress. HEENT: Chronic dysconjugate gaze. Normocephalic. Moist mucous membranes. CARDIAC: Regular rate and rhythm with mild tachycardia, S1, S2. PULMONARY: Bilaterally clear to auscultation. ABDOMEN: Soft, nontender. Positive bowel sounds. EXTREMITIES: No clubbing, cyanosis, or edema. NEUROLOGIC: Difficult to assess, comfortable, all four extremities withdraw from pain. ASSESSMENT AND PLAN: This is a 36-year-old female patient with underlying medical history of mental retardation, cerebral palsy, seizure disorder, hypothyroidism, autism, posttraumatic stress disorder, and irregular menses who presented with back pain, decrease in appetite and change in mental status initially, treated for possible acute pancreatitis. Hospital course complicated with a breakthrough seizure. PROBLEM LIST: 1. Breakthrough seizure. The patient is currently on Lamictal, Trileptal in the progressive care unit, neurology checks, seizure precautions. Neurology has been consulted. Will repeat EEG as per neurology. CT scan appreciated in this hospital stay. Possibly etiology include medication induced, but family reported that patient yearly has seizures in the summer. Last seizure was last year in the summer. Patient was on antibiotics recently, can potentially lower seizure threshold. Discussed with Dr. Horn. Will get repeat EEG, wean off Trileptal and also Keppra has been added. 2. Abdominal pain and back pain. Patient was per family confused on presentation, history of cerebral palsy, autism, posttraumatic stress disorder, and mental retardation. The patient's lipase initially improved prior to the seizure and patient was tolerating diet. Currently patient is more responsive and tolerating diet. Lipase has been appreciated. Currently patient does not have any abdominal pain anymore and CT scan has been appreciated. Case discussed with cable cutter and swager. Ultrasound shows no ductal dilation or transaminitis. Biliary elevation. CT scan does not show pancreatitis. Recommend intravenous (IV) fluids for hydration. Patient currently tolerating diet. Pain regimen as ordered. IV fluids. 3. Encephalopathy, etiology unclear, possibly secondary to pancreatitis versus alternative etiology, baseline cerebral palsy, mental retardation. CT scan shows deep white matter changes, unclear etiology. Family was concerned about waxing and waning mental status. Case discussed with neurology, Dr. Horn, and neuroradiology, Dr. Barnes. As per Dr. Barnes, CT scan finding is consistent with cerebral palsy. Patient does not tolerate MRI and needs full anesthesia, as per Dr. Barnes and Dr. Horn that MRI will not reveal any additional information. The risks outweighs the benefit. EEG shows encephalopathy with bitemporal slowing, possibly associated with cerebral palsy. Herpes workup has been sent. C-reactive protein has bene negative, therefore infectious etiology unlikely. Case was discussed with Dr. Garcias. Repeat culture has been negative. Patient was sufficiently treated with antibiotics. Neurology consultation appreciated. 4. Hypovolemia/hyponatremia, resolved. 5. Bacteremia. Case discussed with infectious diseases, Dr. Garcias. Given that there are three different organisms on two cultures, likely contaminations. Repeat blood culture has been negative. The patient sufficiently treated initially with Zosyn and vancomycin, later switched to nafcillin. Echocardiogram has been negative. Antibiotic discontinued. he patient completed antibiotic course. 6. Irregular menses. Continue control. Outpatient gynecology (REPERTOIRE MANAGER) followup. Pelvic ultrasound appreciated. 7. Hepatic hemangioma. Incidental finding. Will need outpatient followup. Unfortunately, the patient does not tolerate MRI with and without gadolinium without full sedation. but given the risk of anesthesia sedation outweighs the benefit at this time. Will need outpatient followup for further workup. Ultrasound appreciated. 8. Mental retardation, cerebral palsy, autism. The patient resides at [facility] ([facility]). Supportive care. Continue current medication. 9. Gastroesophageal reflux disease (GERD). Continue proton pump inhibitor (PPI). 10. Seizure disorder. Patient had a breakthrough seizure. Weaning Trileptal as per neurology. Continue Lamictal and Keppra. Repeat EEG as recommend by neurology. 11. Deep vein thrombosis (DVT) prophylaxis. Lovenox subcutaneous, sequential compression device. DISPOSITION: Pending repeat EEG, clinical improvement. Case discussed with neurology and gastroenterology, Dr. Barnes and infectious disease Dr. Garcias. Likely discharge over the next 48 hours.
[2017-02-20] MEDS: QUEtiapine 300 MG XR TABLET(SEROQUEL XR) PO SCH (20:39)
[2017-02-20] MEDS: traZODone 50 MG TAB PO SCH (20:41)
[2017-02-20] MEDS: lamoTRIgine 100MG TAB PO SCH (20:41)
[2017-02-20] MEDS: PRAZOSIN 1 MG CAP PO SCH (20:43)
[2017-02-20] MEDS: TRI SPRINTEC PO SCH (20:43)
[2017-02-20] MEDS: NYSTATIN 500,000 U/5 ML SUSP UDC SS SCH (21:56)
[2017-02-21] VITALS: BP 115/63
[2017-02-21] MEDS: NS 1,000 ML IV SCH (00:20)
[2017-02-21 04:00] VITALS: BP 127/79
[2017-02-21 05:37] LABS: RETICULOCYTE ABSOLUTE ADVIA212 53 x10(9)/L (17-77)
[2017-02-21 05:42] LABS: MEAN CORPUSCULAR HEMOGLOBIN 28.8 pg (27.0-33.0); MEAN CORPUSCULAR VOLUME 84.7 fl (80.0-96.0); RED CELL DISTRIBUTION WIDTH 13.6 % (11.5-14.5); WHITE BLOOD COUNT 5.1 K/mm3 (4.0-10.0)
[2017-02-21 05:47] LABS: REASON FOR REVIEW ANEMIA / RBC MORPH
[2017-02-21 06:02] LABS: ANION GAP 5 MEQ/L (8-16); BLOOD UREA NITROGEN 11 MG/DL (7-18); CALCIUM LEVEL 8.8 MG/DL (8.5-10.1); CARBON DIOXIDE LEVEL 29 MEQ/L (21-32); CHLORIDE LEVEL 109 MEQ/L (98-107); CREATININE FOR GFR 0.59 MG/DL (0.55-1.02); GLOMERULAR FILTRATION RATE > 60.0 (>60); GLUCOSE, FASTING 89 MG/DL (70-105); MAGNESIUM LEVEL 2.2 MG/DL (1.8-2.4); PERCENT SATURATION 18.5 % (13.2-45.0); SODIUM LEVEL 143 MEQ/L (136-145)
[2017-02-21] MEDS: THYROID 30 MG TAB PO SCH (06:24)
[2017-02-21 08:00] VITALS: BP 132/80
--- NOTE | 2017-02-21 08:32 | EEG ---
DATE OF PROCEDURE: 02/21/2017 REFERRING PHYSICIAN: Dr. Claudia Luevano DIAGNOSIS: Seizure. EEG NUMBER: [id number] HISTORY: Patient is a 36-year-old female with history of cerebral palsy, developmental delay, autism, who was admitted at [facility] for seizure. Her current medication list was not provided. TECHNICAL DESCRIPTION: This digital EEG was recorded by 21 scalp ear and two EKG electrodes and was reviewed in bipolar and referential montages following reformatting in 10-20 International Electrode Placement System. INTERPRETATION: The patient was noted to be in awake and drowsy states during this EEG. Resting awake background rhythm consisted of 6-7 Hz theta activity measuring 15 - 40 microvolts in amplitude. Stage I and II sleep were reviewed and were symmetric bilaterally. Hyperventilation could not be performed. Photic stimulation remained unremarkable. EKG revealed normal sinus rhythm. Intermittent bilateral frontal and temporal theta slowing was noted. No clear epileptiform abnormalities were seen. No clinical or electrographic seizures were recorded. CONCLUSION: This EEG in awake, drowsy states, stage I and II sleep is abnormal due to presence of mild generalized and bilateral temporal slowing consistent with nonspecific diffuse cerebral dysfunction suggesting an encephalopathy due to multiple potential causes, including toxic, metabolic, medication related, infectious, multifocal structural abnormalities of brain. No epileptiform abnormalities were seen. Clinical correlation is recommended.
[2017-02-21] MEDS: TRIHEXYPHENIDYL 2 MG TAB PO SCH (08:45)
[2017-02-21] MEDS: CLORAZEPATE 3.75 MG TAB PO SCH (08:45)
[2017-02-21] MEDS: ENOXAPARIN 40 MG/0.4 ML SYRINGE (J1650) SC SCH (08:45)
[2017-02-21] MEDS: NYSTATIN 500,000 U/5 ML SUSP UDC SS SCH (08:45)
[2017-02-21] MEDS: ONDANSETRON 4MG/2ML VIAL (J2405) IV PRN (08:45)
[2017-02-21 08:46] LABS: FOLATE 7.7 NG/ML (>5.4)
[2017-02-21] MEDS: SENOKOT S TAB PO SCH (08:46)
[2017-02-21] MEDS: FLUCONAZOLE 100 MG TAB PO SCH (08:46)
[2017-02-21] MEDS: levETIRAcetam 250MG TABLET (KEPPRA) PO SCH (08:46)
[2017-02-21] MEDS: OMEPRAZOLE 20 MG CAP PO SCH (08:46)
[2017-02-21] MEDS: hydrOXYzine 25 MG TAB PO SCH ×2 (08:47→13:28)
[2017-02-21] MEDS: SERTRALINE HCL 50 MG TAB PO SCH (08:47)
[2017-02-21] MEDS: ANUSOL HC CREAM 30GM TOP SCH (08:47)
[2017-02-21] MEDS: OXcarbazepine 150 MG TAB PO SCH (08:47)
[2017-02-21] MEDS ORDERED: KEPP250T5 PO (11:40)
[2017-02-21] MEDS ORDERED: OXCA150T PO ×3 (11:40→12:16)
[2017-02-21] MEDS ORDERED: FLUC10TA PO (11:40)
[2017-02-21] MEDS ORDERED: OMEP40CA2 PO (15:41)
--- NOTE | 2017-02-21 17:02 | DSES ---
DATE OF ADMISSION: 02/14/2017 DATE OF DISCHARGE: 02/21/2017 DISCHARGE DIAGNOSIS: Pancreatitis. SECONDARY DIAGNOSES: 1. Breakthrough seizure. 2. Metabolic encephalopathy. 3. Abdominal pain. 4. Hypovolemic hyponatremia. 5. Bacteremia. 6. Irregular menses. 7. Hepatic hemangioma. 8. Mental retardation. 9. Cerebral palsy. 10. Gastroesophageal reflux disease. 11. Seizure disorder. HOSPITAL COURSE: The patient is a 36-year-old female, patient of [facility] ([facility]), who presented with confusion, abdominal pain, which was found to be a pancreatitis and was treated supportively. She did quickly recover; however, her hospital course was complicated by persistent confusion. There was concern that a CT scan showed deep white matter changes of unclear etiology. Dr. Horn of neurology and Dr. Barnes did review the imaging and the case. There was concern that this was likely consistent with cerebral palsy. The patient did not tolerate a MRI in the inpatient setting. Neuroradiology did not feel the patient would benefit from MRI. The EEG did reveal some encephalopathy with bitemporal slowing, likely also related to cerebral palsy. An herpes simplex virus (HSV) workup was sent and found to be negative. The patient's pancreatitis resolved but her lipase remained elevated. She was seen by gastroenterology, who felt that she could undergo further evaluation of her abdominal pain on the outpatient setting and felt that she was not having any further acute pancreatitis. She did have two blood cultures which were positive for different bacteria. It was felt to be likely contaminant. Also during her stay, the patient was found to have hepatic hemangioma, which was an incidental finding. The patient was unable to once again tolerate an MRI. It could be considered repeating on the outpatient setting. SUBJECTIVE: This morning the patient feels well. She denies abdominal pain. She wants to go home. She is oriented to person but not place, time, or situation. OBJECTIVE: VITAL SIGNS: Temperature 97.9, pulse 83, respiratory rate 18, blood pressure (BP ) 157/79, oxygen saturation 96% on room air. GENERAL: Pleasant, female sitting in a recliner. She does not appear to be in any acute distress. HEENT: She has chronic dysconjugate gaze. Moist mucous membranes. No elevation in central venous pressure (CVP). CARDIOVASCULAR: S1, S2, regular. RESPIRATORY: Clear. ABDOMEN: Benign. EXTREMITIES: No clubbing, cyanosis, or edema. Spontaneously moves all four extremities. LABORATORY STUDIES: WBC 5.1, hemoglobin 10.5, platelet count 203. Chemistry panel: Sodium 143, potassium 4.0, chloride 109, bicarbonate 29, BUN 11 , creatinine 0.9. HSV serologies are pending. Microbiology: Clostridium (C) difficile was negative. Blood cultures were negative on all of her repeats. Initial blood cultures were positive for Staphylococcus aureus rosacea, as well as Staphylococcus warneri, all felt to be contaminated. Urine culture was negative. IMAGING: She did have a pelvic ultrasound that was unremarkable. She had abdominal CT scan that revealed normal pancreas. She had a CT scan of the head, which revealed normal-size ventricles. No hemorrhage, acute infarct, or mass, essentially negative study of the CT brain. She did have a liver ultrasound that revealed probably hepatic hemangiomas. She did have a repeat EEG, which did not demonstrate any new findings. ASSESSMENT AND PLAN: This is a 36-year-old female with pancreatitis. 1. Pancreatitis, resolved. She has had persistent abdominal pain and persistently elevated lipase. Her abdominal pain is resolved at this time. Gastroenterology's help greatly appreciated. He felt it was less likely pancreatitis. There was concern for possible oral or dental infection, but no evidence of demonstrated. The patient did receive significant antibiotics earlier during her stay. Anemia workup has been sent, which she can followup outpatient with gastroenterology within 1 month. She will be continued on a proton pump inhibitor (PPI) for 6 weeks. Helicobacter (H) pylori testing has been ordered. 2. Breakthrough seizures. Neurology's help has been appreciated. We are tapering her down from her Trileptal in favor of Keppra. Medications have been ordered as per neurology's recommendations, whose thought is that recent antibiotic use may have lowered her seizure threshold. 3. Encephalopathy, likely related to her cerebral palsy. 4. Deep white matter changes, likely related to cerebral palsy. 5. Hypovolemic hyponatremia, resolved. 6. Bacteremia, likely a contaminant. Case was discussed with Dr. Garcias earlier during her stay. 7. Irregular menses. Patient is on control. Continue with outpatient followup. 8. hepatic hemangioma incidental finding. Consider outpatient MRI if tolerated without gadolinium. 9. Gastroesophageal reflux disease. She is on omeprazole. 10. Seizure disorder, as outlined above. 11. Deep vein thrombosis (DVT) prophylaxis. Patient has been on Lovenox. DISPOSITION: The patient is being discharged back to [facility]. She is at her functional baseline. Her clinical symptoms have resolved. She is to followup with her primary care physician (PCP) within 7 days, followup with gastrointestinal (GI) within 1 month, followup with neurology as scheduled. Her activity and diet are as prior to admission. She is to return to the emergency room (ER) of symptoms worsen. MEDICATIONS AT THE TIME OF DISCHARGE: - Diflucan 100 mg daily for 6 more days - Keppra 750 mg twice a day - oxcarbazepine 150 mg for one more day, then 75 mg for 3 days, then stop - Abilify 5 mg twice a day - Tranxene 7.5 mg daily - hydroxyzine 25 mg four times a day as needed - Lamictal 150 mg daily, 200 mg at bedtime - omeprazole 40 mg every evening - prazosin 2 mg at bedtime - Seroquel extended release 600 mg at bedtime - Zoloft 50 mg daily - Thyroid Aylett 60 mg daily - trazodone 150 mg at bedtime - trihexyphenidyl 1 mg by mouth twice a day - TriNessa one tablet daily Greater than 30 minutes spent organizing disposition. MTDD
[2017-02-22 00:06] LABS: HSV TYPE I IgM AB <1:10 titer (<1:10); HSV TYPE II IgM ABY <1:10 titer (<1:10)
[2017-02-23] MEDS ORDERED: OXcarbazepine 150 MG TAB PO SCH (09:00)
== END 2017-02-21 14:20 | disposition home or self-care (01) | DRG 438 ==
LOC: EDBD 08:43 → M ED 08:43 → M ED INP 13:16 → M MSPAV 14:59 → OBSVTOIN 02-14 09:47 → M PCU 02-19 09:04
PROVIDERS: ADMIT Internal Medicine; ATTEND Internal Medicine
DX: K85.90 Acute pancreatitis without necrosis or infection, unspecified (principal); G93.41 Metabolic encephalopathy; R78.81 Bacteremia; E87.1 Hypo-osmolality and hyponatremia; F84.0 Autistic disorder; G40.909 Epilepsy, unspecified, not intractable, without status epilepticus; K21.9 Gastro-esophageal reflux disease without esophagitis; G80.9 Cerebral palsy, unspecified; D18.09 Hemangioma of other sites; F79 Unspecified intellectual disabilities; N92.6 Irregular menstruation, unspecified; E86.1 Hypovolemia; Z79.899 Other long term (current) drug therapy; E03.9 Hypothyroidism, unspecified; F43.10 Post-traumatic stress disorder, unspecified; D64.9 Anemia, unspecified

== ENCOUNTER → 2017-03-04 | Outpatient (CLI) | payer MEDICARE, MEDICAID ==
[~2017-03-04] MED LIST changes: +FLUC10TA PO; +HYDR-3363 PO; +KEPP250T5 PO; +OMEP40CA2 PO; +OXCA150T PO; +OXCA300T PO; +TRAZ50TA11 PO; +TRINTAB3 PO
== END ==
LOC: M WUC 14:44
PROVIDERS: ATTEND Physician Assistant Medical
DX: R56.9 Unspecified convulsions (principal); Z51.81 Encounter for therapeutic drug level monitoring

== ENCOUNTER → 2017-04-29 | Outpatient (CLI) | payer MEDICARE, MEDICAID ==
[2017-04-29 08:09] LABS: BASO % 0.2 % (0.0-1.0); EOS # 0.1 10^3/uL (0.0-0.50); EOS % 2.2 % (0.0-3.0); IMMATURE GRANULOCYTE % 0.4 % (0-0); LYMPH # 1.3 10^3/uL (1.5-4.5); LYMPH % 28.9 % (24.0-44.0); MEAN CORPUSCULAR HEMOGLOBIN 27.8 pg (27.0-33.0); MEAN CORPUSCULAR HGB CONC 33.8 g/dl (32.0-36.5); MEAN CORPUSCULAR VOLUME 82.4 fl (80.0-96.0); MONO # 0.3 10^3/uL (0.0-0.8); MONO % 7.1 % (0.0-5.0); NEUTROPHILS # 2.8 10^3/uL (1.8-7.7); NEUTROPHILS % 61.2 % (36.0-66.0); PLATELET COUNT, AUTOMATED 201 10^3/uL (150-450); RED CELL DISTRIBUTION WIDTH 12.4 % (11.5-14.5); WHITE BLOOD COUNT 4.6 10^3/uL (4.0-10.0)
[2017-04-29 08:35] LABS: CONTROL LINE HPYORI INT CTR LINE PRESENT
[2017-04-29 08:38] LABS: FERRITIN 20 NG/ML (8-252); PERCENT SATURATION 30.4 % (13.2-45.0); TOTAL IRON BINDING CAPACITY 398 UG/DL (250-450)
== END ==
LOC: M LAB 07:41
PROVIDERS: ATTEND Internal Medicine Gastroenterology
DX: R10.30 Lower abdominal pain, unspecified (principal); Z79.899 Other long term (current) drug therapy

== ENCOUNTER → 2017-08-11 | Outpatient (CLI) | payer MEDICARE, MEDICAID ==
[2017-08-11 08:57] LABS: THYROID STIMULATING HORMONE 0.594 uIU/ML (0.358-3.740)
== END ==
LOC: M LAB 06:57
DX: E03.9 Hypothyroidism, unspecified (principal)
CPT/HCPCS: 84443

== ENCOUNTER → 2017-09-15 | Outpatient (CLI) | payer MEDICARE, MEDICAID ==
[2017-09-15 08:09] LABS: AMYLASE 73 U/L (25-115); LIPASE 169 U/L (73-393)
[2017-09-15 11:13] LABS: CA19-9 TUMOR MARKER,CARBOHYDRA 9.9 U/ML (<35.0)
[2017-09-19 00:06] LABS: CHROMOGRANIN A 4 nmol/L (0-5)
[2017-09-19 00:06] LABS: GASTRIN 36 pg/mL (0-115)
== END ==
LOC: M LAB 06:38
DX: R10.84 Generalized abdominal pain (principal)
CPT/HCPCS: 82150

== ENCOUNTER → 2017-11-21 | Outpatient (CLI) | payer MEDICARE, MEDICAID ==
[2017-11-23 14:15] LABS: LAMOTRIGINE (LAMICTAL) 2.9 ug/mL (2.0-20.0)
[2017-11-23 14:15] LABS: LEVETIRACETAM (KEPPRA) 12.5 ug/mL (10.0-40.0)
== END ==
LOC: M LAB 07:28
DX: R56.9 Unspecified convulsions (principal); Z79.899 Other long term (current) drug therapy
CPT/HCPCS: 36415

== ENCOUNTER → 2018-01-01 | Outpatient (CLI) | payer MEDICARE, MEDICAID ==
[2018-01-01 08:48] LABS: ALBUMIN 3.5 GM/DL (3.2-5.2); ALBUMIN/GLOBULIN RATIO 1.06 (1.00-1.93); ALKALINE PHOSPHATASE 66 U/L (45-117); ALT/SGPT 19 U/L (12-78); ANION GAP 7 MEQ/L (8-16); AST/SGOT 11 U/L (7-37); BILIRUBIN,TOTAL 0.3 MG/DL (0.2-1.0); BLOOD UREA NITROGEN 16 MG/DL (7-18); CALCIUM LEVEL 8.5 MG/DL (8.5-10.1); CARBON DIOXIDE LEVEL 28 MEQ/L (21-32); CHLORIDE LEVEL 104 MEQ/L (98-107); CHOLESTEROL LEVEL 198 MG/DL (<200); CHOLESTEROL RISK RATIO 2.475 (<5); CREATININE FOR GFR 0.83 MG/DL (0.55-1.30); GLOMERULAR FILTRATION RATE > 60.0 (>60); GLUCOSE, FASTING 76 MG/DL (70-100); HDL CHOLESTEROL 80 MG/DL (>40); LDL CHOLESTEROL 87.4 MG/DL (<100); NON-HDL-C 118 MG/DL; POTASSIUM SERUM 4.1 MEQ/L (3.5-5.1); SODIUM LEVEL 139 MEQ/L (136-145); TOTAL PROTEIN 6.8 GM/DL (6.4-8.2); TRIGLYCERIDES LEVEL 153 MG/DL (<150)
== END ==
LOC: M LAB 07:24
DX: E03.9 Hypothyroidism, unspecified (principal)
CPT/HCPCS: 84443

== ENCOUNTER 2018-01-23 09:42 | Inpatient (IN) | payer MEDICARE, MEDICAID ==
[2018-01-23] MEDS: MIRALAX *UNIT DOSE* 17GM PACKET PO (09:00)
[2018-01-23 11:25] LABS: BASO % 0.1 % (0.0-1.0); EOS % 0.6 % (0.0-3.0); HEMATOCRIT 34.8 % (36.0-47.0); HEMOGLOBIN 11.3 g/dl (12.0-15.5); IMMATURE GRANULOCYTE % 0.9 % (0-3.0); LYMPH % 14.9 % (24.0-44.0); MEAN CORPUSCULAR HEMOGLOBIN 26.5 pg (27.0-33.0); MEAN CORPUSCULAR HGB CONC 32.5 g/dl (32.0-36.5); MEAN CORPUSCULAR VOLUME 81.5 fl (80.0-96.0); MONO # 0.6 10^3/uL (0.0-0.8); MONO % 9.1 % (0.0-5.0); NEUTROPHILS # 5.1 10^3/uL (1.8-7.7); NEUTROPHILS % 74.4 % (36.0-66.0); PLATELET COUNT, AUTOMATED 196 10^3/uL (150-450); RED BLOOD COUNT 4.27 10^6/uL (4.00-5.40); RED CELL DISTRIBUTION WIDTH 14.4 % (11.5-14.5); WHITE BLOOD COUNT 6.9 10^3/uL (4.0-10.0)
[2018-01-23 12:17] LABS: ALBUMIN 3.5 GM/DL (3.2-5.2); ALBUMIN/GLOBULIN RATIO 1.03 (1.00-1.93); ALKALINE PHOSPHATASE 88 U/L (45-117); ALT/SGPT 20 U/L (12-78); ANION GAP 7 MEQ/L (8-16); AST/SGOT 24 U/L (7-37); BILIRUBIN,DIRECT < 0.1 MG/DL (0.0-0.2); BILIRUBIN,TOTAL 0.3 MG/DL (0.2-1.0); BLOOD UREA NITROGEN 15 MG/DL (7-18); CARBON DIOXIDE LEVEL 28 MEQ/L (21-32); CHLORIDE LEVEL 102 MEQ/L (98-107); CREATININE FOR GFR 0.64 MG/DL (0.55-1.30); GLOMERULAR FILTRATION RATE > 60.0 (>60); LIPASE 172 U/L (73-393); POTASSIUM SERUM 4.3 MEQ/L (3.5-5.1); SODIUM LEVEL 137 MEQ/L (136-145); TOTAL PROTEIN 6.9 GM/DL (6.4-8.2)
[2018-01-23 12:33] LABS: GLUCOSE, FASTING 37 MG/DL (70-100)
[2018-01-23] MEDS: DEXTROSE 50% 50 ML SYRINGE IV (12:40)
[2018-01-23 13:03] LABS: BEDSIDE GLUCOSE 139 MG/DL (70-105)
[2018-01-23 14:04] LABS: BEDSIDE GLUCOSE 106 MG/DL (70-105)
[2018-01-23] MEDS ORDERED: GLUCOSE 4 GM CHEW TABLET PO (16:15)
[2018-01-23] MEDS ORDERED: ONDANSETRON 4 MG TAB (S0181) PO (16:15)
[2018-01-23] MEDS ORDERED: DEXTROSE 50% 50 ML SYRINGE IV (16:15)
[2018-01-23] MEDS ORDERED: FLEET ENEMA PR (16:15)
[2018-01-23] MEDS ORDERED: ONDANSETRON 4MG/2ML VIAL (J2405) IV (16:15)
[2018-01-23] MEDS ORDERED: GLUCAGON FOR INJ 1 MG VIAL (J1610) SC (16:15)
[2018-01-23] MEDS: MOM 30ML SUSPENSION UDC PO (16:15)
[2018-01-23] MEDS: D5W/0.45% SODIUM CHLORIDE 1,000 ML IV (16:40)
[2018-01-23] MEDS ORDERED: PILL CRUSHER/CUTTER 1 EACH XX (16:45)
[2018-01-23 18:27] LABS: BEDSIDE GLUCOSE 105 MG/DL (70-105)
[2018-01-23 20:12] LABS: KETONE, URINE AUTO RFX NEGATIVE (NEGATIVE); LEUKOCYTE ESTERASE UR AUTO RFX NEGATIVE (NEGATIVE); NITRITE, URINE AUTO RFX NEGATIVE (NEGATIVE); RBC, URINE AUTO RFX 1 /HPF (0-3); SPECIFIC GRAVITY UR AUTO RFX 1.004 (1.002-1.035); SQUAM EPITHELIAL CELL UR AURFX 0 /HPF (0-6); WBC, URINE AUTO RFX 1 /HPF (0-3)
[2018-01-23] MEDS ORDERED: levETIRAcetam 250MG TABLET (KEPPRA) PO ×2 (21:00)
[2018-01-23] MEDS ORDERED: lamoTRIgine 100MG TAB PO (21:00)
[2018-01-23] MEDS: QUEtiapine 300 MG XR TABLET(SEROQUEL XR) PO (21:18)
[2018-01-23] MEDS: levETIRAcetam 250MG TABLET (KEPPRA) PO (21:19)
[2018-01-23] MEDS: LEVOTHYROXINE 88MCG TABLET (0.088 MG) PO (21:22)
[2018-01-23] MEDS: VITAMIN D 1,000 INTERNATIONAL UNITS TABLET PO (21:22)
[2018-01-23] MEDS: traZODone 50 MG TAB PO (21:22)
[2018-01-23] MEDS: CLORAZEPATE 3.75 MG TAB PO (21:22)
[2018-01-23] MEDS: lamoTRIgine 100MG TAB PO (21:23)
[2018-01-23] MEDS: PRAZOSIN 1 MG CAP PO (21:24)
[2018-01-23] MEDS: TRIHEXYPHENIDYL 2 MG TAB PO (21:24)
[2018-01-23] MEDS: FAMOTIDINE 20 MG TAB PO (21:25)
[2018-01-23] MEDS: DOCUSATE SODIUM 100 MG CAP PO (21:25)
[2018-01-23] MEDS: hydrOXYzine 50 MG TAB PO (21:34)
[2018-01-24] LABS: BEDSIDE GLUCOSE 94 MG/DL (70-105)
[2018-01-24] MEDS: NORGESTIMATE ETH ESTRADIOL PO ×2 (00:28→21:05)
[2018-01-24] MEDS: hydrOXYzine 50 MG TAB PO ×5 (00:54→23:35)
[2018-01-24 02:54] LABS: BEDSIDE GLUCOSE 99 MG/DL (70-105)
[2018-01-24] MEDS: D5W/0.45% SODIUM CHLORIDE 1,000 ML IV (03:37)
[2018-01-24 06:16] LABS: BEDSIDE GLUCOSE 143 MG/DL (70-105)
[2018-01-24 06:42] LABS: BASO % 0.5 % (0.0-1.0); EOS # 0.1 10^3/uL (0.0-0.50); EOS % 1.7 % (0.0-3.0); HEMATOCRIT 30.6 % (36.0-47.0); IMMATURE GRANULOCYTE % 1.4 % (0-3.0); LYMPH # 1.1 10^3/uL (1.5-4.5); LYMPH % 24.9 % (24.0-44.0); MEAN CORPUSCULAR HEMOGLOBIN 26.1 pg (27.0-33.0); MEAN CORPUSCULAR HGB CONC 32.7 g/dl (32.0-36.5); MEAN CORPUSCULAR VOLUME 79.9 fl (80.0-96.0); MONO # 0.5 10^3/uL (0.0-0.8); MONO % 10.9 % (0.0-5.0); NEUTROPHILS # 2.6 10^3/uL (1.8-7.7); NEUTROPHILS % 60.6 % (36.0-66.0); PLATELET COUNT, AUTOMATED 168 10^3/uL (150-450); RED BLOOD COUNT 3.83 10^6/uL (4.00-5.40); RED CELL DISTRIBUTION WIDTH 14.1 % (11.5-14.5); WHITE BLOOD COUNT 4.2 10^3/uL (4.0-10.0)
[2018-01-24 07:07] LABS: ANION GAP 5 MEQ/L (8-16); BLOOD UREA NITROGEN 9 MG/DL (7-18); CALCIUM LEVEL 7.9 MG/DL (8.5-10.1); CARBON DIOXIDE LEVEL 27 MEQ/L (21-32); CHLORIDE LEVEL 102 MEQ/L (98-107); CREATININE FOR GFR 0.57 MG/DL (0.55-1.30); GLOMERULAR FILTRATION RATE > 60.0 (>60); GLUCOSE, FASTING 115 MG/DL (70-100); MAGNESIUM LEVEL 1.9 MG/DL (1.8-2.4); POTASSIUM SERUM 3.9 MEQ/L (3.5-5.1); SODIUM LEVEL 134 MEQ/L (136-145)
[2018-01-24] MEDS ORDERED: lamoTRIgine 100MG TAB PO (09:00)
[2018-01-24] MEDS: MIRALAX *UNIT DOSE* 17GM PACKET PO (09:14)
[2018-01-24] MEDS: lamoTRIgine 100MG TAB PO ×2 (09:15→21:04)
[2018-01-24] MEDS: levETIRAcetam 250MG TABLET (KEPPRA) PO ×2 (09:15→21:04)
[2018-01-24] MEDS: TRIHEXYPHENIDYL 2 MG TAB PO ×2 (09:16→21:04)
[2018-01-24] MEDS: SERTRALINE HCL 50 MG TAB PO (09:16)
[2018-01-24] MEDS: DOCUSATE SODIUM 100 MG CAP PO ×2 (09:17→21:05)
[2018-01-24 10:08] LABS: BEDSIDE GLUCOSE 102 MG/DL (70-105)
[2018-01-24] MEDS ORDERED: ISOVUE-370 76% 100ML VIAL (Q9967) As Ordered (10:09)
[2018-01-24] MEDS: CLORAZEPATE 3.75 MG TAB PO ×2 (11:50→21:04)
[2018-01-24 15:19] LABS: BEDSIDE GLUCOSE 110 MG/DL (70-105)
[2018-01-24 18:09] LABS: BEDSIDE GLUCOSE 109 MG/DL (70-105)
[2018-01-24] MEDS: LEVOTHYROXINE 88MCG TABLET (0.088 MG) PO (21:04)
[2018-01-24] MEDS: FAMOTIDINE 20 MG TAB PO (21:05)
[2018-01-24] MEDS: VITAMIN D 1,000 INTERNATIONAL UNITS TABLET PO (21:05)
[2018-01-24] MEDS: PRAZOSIN 1 MG CAP PO (21:05)
[2018-01-24] MEDS: QUEtiapine 300 MG XR TABLET(SEROQUEL XR) PO (21:05)
[2018-01-24] MEDS: traZODone 50 MG TAB PO (21:05)
[2018-01-24 22:53] LABS: BEDSIDE GLUCOSE 89 MG/DL (70-105)
[2018-01-25] MEDS: ACETAMINOPHEN TAB 650MG DOSE (2X325MG) PO ×2 (01:24→05:51)
[2018-01-25 01:52] LABS: BEDSIDE GLUCOSE 83 MG/DL (70-105)
[2018-01-25] MEDS: hydrOXYzine 50 MG TAB PO ×2 (05:51→11:52)
[2018-01-25 07:07] LABS: BASO % 0.6 % (0.0-1.0); EOS # 0.1 10^3/uL (0.0-0.50); EOS % 1.3 % (0.0-3.0); HEMATOCRIT 33.9 % (36.0-47.0); HEMOGLOBIN 10.9 g/dl (12.0-15.5); IMMATURE GRANULOCYTE % 0.9 % (0-3.0); LYMPH # 1.5 10^3/uL (1.5-4.5); LYMPH % 26.8 % (24.0-44.0); MEAN CORPUSCULAR HEMOGLOBIN 26.5 pg (27.0-33.0); MEAN CORPUSCULAR HGB CONC 32.2 g/dl (32.0-36.5); MEAN CORPUSCULAR VOLUME 82.5 fl (80.0-96.0); MONO # 0.4 10^3/uL (0.0-0.8); MONO % 8.1 % (0.0-5.0); NEUTROPHILS # 3.4 10^3/uL (1.8-7.7); NEUTROPHILS % 62.3 % (36.0-66.0); PLATELET COUNT, AUTOMATED 172 10^3/uL (150-450); RED BLOOD COUNT 4.11 10^6/uL (4.00-5.40); RED CELL DISTRIBUTION WIDTH 14.4 % (11.5-14.5); WHITE BLOOD COUNT 5.4 10^3/uL (4.0-10.0)
[2018-01-25 07:25] LABS: ANION GAP 6 MEQ/L (8-16); BLOOD UREA NITROGEN 11 MG/DL (7-18); CALCIUM LEVEL 8.4 MG/DL (8.5-10.1); CARBON DIOXIDE LEVEL 27 MEQ/L (21-32); CHLORIDE LEVEL 106 MEQ/L (98-107); CREATININE FOR GFR 0.67 MG/DL (0.55-1.30); GLOMERULAR FILTRATION RATE > 60.0 (>60); GLUCOSE, FASTING 79 MG/DL (70-100); MAGNESIUM LEVEL 2.1 MG/DL (1.8-2.4); POTASSIUM SERUM 4.1 MEQ/L (3.5-5.1); SODIUM LEVEL 139 MEQ/L (136-145)
[2018-01-25] MEDS: TRIHEXYPHENIDYL 2 MG TAB PO (09:52)
[2018-01-25] MEDS: DOCUSATE SODIUM 100 MG CAP PO (09:53)
[2018-01-25] MEDS: CLORAZEPATE 3.75 MG TAB PO (09:53)
[2018-01-25] MEDS: lamoTRIgine 100MG TAB PO (09:53)
[2018-01-25] MEDS: MIRALAX *UNIT DOSE* 17GM PACKET PO (09:53)
[2018-01-25] MEDS: SERTRALINE HCL 50 MG TAB PO (09:53)
[2018-01-25] MEDS: levETIRAcetam 250MG TABLET (KEPPRA) PO (09:53)
[2018-01-25] MEDS: ENOXAPARIN 40 MG/0.4 ML SYRINGE (J1650) SC (09:54)
[2018-01-25 10:36] LABS: BEDSIDE GLUCOSE 76 MG/DL (70-105)
[2018-01-25] MEDS: MOM 30ML SUSPENSION UDC PO (11:52)
[2018-01-25] MEDS: BISACODYL 10 MG SUPP PR (11:52)
[2018-01-26 00:12] LABS: LEVETIRACETAM (KEPPRA) 28.4 ug/mL (10.0-40.0)
[2018-01-26 00:12] LABS: LAMOTRIGINE (LAMICTAL) 3.6 ug/mL (2.0-20.0)
== END 2018-01-25 16:10 | disposition home or self-care (01) | DRG 101 ==
LOC: M ED 09:42 → M ED INP 16:08 → M MSPAV 20:42
DX: G40.419 Other generalized epilepsy and epileptic syndromes, intractable, without status epilepticus (principal); G80.9 Cerebral palsy, unspecified; K21.9 Gastro-esophageal reflux disease without esophagitis; K59.00 Constipation, unspecified; E16.2 Hypoglycemia, unspecified; E03.9 Hypothyroidism, unspecified; F79 Unspecified intellectual disabilities; Z79.899 Other long term (current) drug therapy

== ENCOUNTER → 2018-01-27 | Outpatient (CLI) | payer MEDICARE, MEDICAID | LOC: M LAB 09:52 | DX: R56.9 Unspecified convulsions (principal) | CPT/HCPCS: 36415 ==

== ENCOUNTER 2018-05-26 16:14 | Emergency (ER) | payer MEDICARE, MEDICAID ==
[2018-05-26 17:32] LABS: BASO % 0.3 % (0.0-1.0); EOS # 0.1 10^3/uL (0.0-0.50); HEMATOCRIT 35.2 % (36.0-47.0); HEMOGLOBIN 11.5 g/dl (12.0-15.5); LYMPH # 1.7 10^3/uL (1.5-4.5); LYMPH % 28.3 % (24.0-44.0); MEAN CORPUSCULAR HEMOGLOBIN 26.2 pg (27.0-33.0); MEAN CORPUSCULAR HGB CONC 32.7 g/dl (32.0-36.5); MEAN CORPUSCULAR VOLUME 80.2 fl (80.0-96.0); MONO # 0.6 10^3/uL (0.0-0.8); MONO % 9.5 % (0.0-5.0); NEUTROPHILS # 3.6 10^3/uL (1.8-7.7); NEUTROPHILS % 59.9 % (36.0-66.0); PLATELET COUNT, AUTOMATED 202 10^3/uL (150-450); RED BLOOD COUNT 4.39 10^6/uL (4.00-5.40); RED CELL DISTRIBUTION WIDTH 13.3 % (11.5-14.5)
[2018-05-26 17:39] LABS: KETONE, URINE AUTO RFX NEGATIVE (NEGATIVE); LEUKOCYTE ESTERASE UR AUTO RFX NEGATIVE (NEGATIVE); NITRITE, URINE AUTO RFX NEGATIVE (NEGATIVE); RBC, URINE AUTO RFX 2 /HPF (0-3); SPECIFIC GRAVITY UR AUTO RFX 1.005 (1.002-1.035); SQUAM EPITHELIAL CELL UR AURFX 1 /HPF (0-6); WBC, URINE AUTO RFX 1 /HPF (0-3)
[2018-05-26 17:46] LABS: CONTROL LINE HCG INT CTR LINE PRESENT; HCG, SERUM QUALITATIVE NEGATIVE (NEGATIVE)
[2018-05-26 17:54] LABS: ALBUMIN 3.5 GM/DL (3.2-5.2); ALBUMIN/GLOBULIN RATIO 1.17 (1.00-1.93); ALKALINE PHOSPHATASE 73 U/L (45-117); ALT/SGPT 17 U/L (12-78); ANION GAP 6 MEQ/L (8-16); AST/SGOT 15 U/L (7-37); BILIRUBIN,DIRECT < 0.1 MG/DL (0.0-0.2); BILIRUBIN,TOTAL 0.2 MG/DL (0.2-1.0); BLOOD UREA NITROGEN 11 MG/DL (7-18); CARBON DIOXIDE LEVEL 31 MEQ/L (21-32); CHLORIDE LEVEL 98 MEQ/L (98-107); CREATININE FOR GFR 0.71 MG/DL (0.55-1.30); GLOMERULAR FILTRATION RATE > 60.0 (>60); GLUCOSE, FASTING 95 MG/DL (70-100); LIPASE 162 U/L (73-393); POTASSIUM SERUM 3.8 MEQ/L (3.5-5.1); SODIUM LEVEL 135 MEQ/L (136-145); TOTAL PROTEIN 6.5 GM/DL (6.4-8.2)
== END 2018-05-26 18:35 | disposition home or self-care (01) ==
LOC: M ED 16:14
DX: J45.909 Unspecified asthma, uncomplicated (principal); F41.9 Anxiety disorder, unspecified
CPT/HCPCS: 83690

== ENCOUNTER → 2018-06-19 | Outpatient (CLI) | payer MEDICARE, MEDICAID ==
[2018-06-22 00:29] LABS: LAMOTRIGINE (LAMICTAL) 2.4 ug/mL (2.0-20.0)
[2018-06-22 00:29] LABS: LEVETIRACETAM (KEPPRA) 24.1 ug/mL (10.0-40.0)
== END ==
LOC: M LAB 07:00
DX: R56.9 Unspecified convulsions (principal); Z51.81 Encounter for therapeutic drug level monitoring; Z79.899 Other long term (current) drug therapy
CPT/HCPCS: 36415

== ENCOUNTER → 2018-10-27 | Outpatient (CLI) | payer MEDICARE, MEDICAID ==
[~2018-10-27] MED LIST changes: +ARIP1TAB6 PO; +ASPI-1 PO; -ASPI325T PO; +CLOR7.5T3 PO; +COLA100C5 PO; +FAMO40TA3 PO; +HYDR50TA70 PO; +KEPP10002 PO; +KEPP1TAB2 PO; +LAMO100T80 PO; +LAMO150T2 PO; +LAMO200T2 PO; +LEVE750T5 PO; +LEVO-88 PO; +LEVO88TA24 PO; +LEVO88TA3 PO; -OXCA150T PO; +OXCA150T21 PO; -OXCA300T PO; +OXCA300T14 PO; +POLY33503; +PRAZ2CAP PO; +QUET300T53 PO; -QUET30XR PO; +SERO1TAB2 PO; +SERO300T PO; +SERT-141 PO; +TRAZ-160 PO; -TRAZ50TA11 PO; +TRI-TAB11 PO; +TRINTAB PO; -TRINTAB3 PO; +VITA2000 PO; +VITAD1000T PO
[2018-10-27 11:58] LABS: BASO % 0.2 % (0.0-1.0); HEMATOCRIT 39.1 % (36.0-47.0); HEMOGLOBIN 12.6 g/dl (12.0-15.5); LYMPH # 1.6 10^3/uL (1.5-4.5); LYMPH % 34.6 % (24.0-44.0); MEAN CORPUSCULAR HEMOGLOBIN 25.9 pg (27.0-33.0); MEAN CORPUSCULAR HGB CONC 32.2 g/dl (32.0-36.5); MEAN CORPUSCULAR VOLUME 80.5 fl (80.0-96.0); MONO # 0.3 10^3/uL (0.0-0.8); MONO % 7.3 % (0.0-5.0); NEUTROPHILS # 2.7 10^3/uL (1.8-7.7); NEUTROPHILS % 57.5 % (36.0-66.0); PLATELET COUNT, AUTOMATED 195 10^3/uL (150-450); RED BLOOD COUNT 4.86 10^6/uL (4.00-5.40); WHITE BLOOD COUNT 4.6 10^3/uL (4.0-10.0)
[2018-10-27 12:25] LABS: ALBUMIN 3.9 GM/DL (3.2-5.2); ALT/SGPT 17 U/L (12-78); BILIRUBIN,TOTAL 0.3 MG/DL (0.2-1.0); BLOOD UREA NITROGEN 11 MG/DL (7-18); CALCIUM LEVEL 8.7 MG/DL (8.5-10.1); CARBON DIOXIDE LEVEL 30 MEQ/L (21-32); CHLORIDE LEVEL 101 MEQ/L (98-107); CREATININE FOR GFR 0.81 MG/DL (0.55-1.30); GLOMERULAR FILTRATION RATE > 60.0 (>60); GLUCOSE, FASTING 69 MG/DL (70-100); POTASSIUM SERUM 4.2 MEQ/L (3.5-5.1); SODIUM LEVEL 138 MEQ/L (136-145); THYROID STIMULATING HORMONE 0.397 uIU/ML (0.358-3.740); TOTAL PROTEIN 6.8 GM/DL (6.4-8.2)
== END ==
LOC: M LAB 09:40
PROVIDERS: ATTEND Internal Medicine
DX: E03.9 Hypothyroidism, unspecified (principal); R63.4 Abnormal weight loss

== ENCOUNTER → 2018-10-27 | Outpatient (CLI) | payer MEDICARE, MEDICAID ==
[2018-10-27 12:00] LABS: BASO % 0.4 % (0.0-1.0); HEMATOCRIT 38.9 % (36.0-47.0); HEMOGLOBIN 12.6 g/dl (12.0-15.5); LYMPH # 1.6 10^3/uL (1.5-4.5); LYMPH % 33.3 % (24.0-44.0); MEAN CORPUSCULAR HEMOGLOBIN 26.1 pg (27.0-33.0); MEAN CORPUSCULAR HGB CONC 32.4 g/dl (32.0-36.5); MEAN CORPUSCULAR VOLUME 80.5 fl (80.0-96.0); MONO # 0.4 10^3/uL (0.0-0.8); MONO % 7.3 % (0.0-5.0); NEUTROPHILS # 2.8 10^3/uL (1.8-7.7); NEUTROPHILS % 58.6 % (36.0-66.0); PLATELET COUNT, AUTOMATED 196 10^3/uL (150-450); RED BLOOD COUNT 4.83 10^6/uL (4.00-5.40); WHITE BLOOD COUNT 4.8 10^3/uL (4.0-10.0)
[2018-10-27 12:17] LABS: ALBUMIN 3.8 GM/DL (3.2-5.2); ALT/SGPT 15 U/L (12-78); BILIRUBIN,TOTAL 0.3 MG/DL (0.2-1.0); BLOOD UREA NITROGEN 12 MG/DL (7-18); CALCIUM LEVEL 8.9 MG/DL (8.5-10.1); CARBON DIOXIDE LEVEL 30 MEQ/L (21-32); CHLORIDE LEVEL 102 MEQ/L (98-107); CHOLESTEROL LEVEL 239 MG/DL (<200); CHOLESTEROL RISK RATIO 2.515 (<5); CREATININE FOR GFR 0.82 MG/DL (0.55-1.30); GLOMERULAR FILTRATION RATE > 60.0 (>60); GLUCOSE, FASTING 72 MG/DL (70-100); HDL CHOLESTEROL 95 MG/DL (>40); HEMOGLOBIN A1c 4.9 %; LDL CHOLESTEROL 127 MG/DL (<100); NON-HDL-C 144 MG/DL; POTASSIUM SERUM 4.2 MEQ/L (3.5-5.1); SODIUM LEVEL 138 MEQ/L (136-145); TOTAL PROTEIN 6.7 GM/DL (6.4-8.2); TRIGLYCERIDES LEVEL 86 MG/DL (<150)
== END ==
LOC: M LAB 09:35
PROVIDERS: ATTEND Physician Assistant
DX: F84.0 Autistic disorder (principal); E03.9 Hypothyroidism, unspecified; R63.4 Abnormal weight loss

== ENCOUNTER → 2018-12-12 | Outpatient (CLI) | payer MEDICARE, MEDICAID ==
[~2018-12-12] MED LIST changes: -TRAZ-160 PO; +TRAZ-252 PO
[2018-12-16 17:27] LABS: LAMOTRIGINE (LAMICTAL) 6.6 ug/mL (2.0-20.0); LEVETIRACETAM (KEPPRA) 34.3 ug/mL (10.0-40.0)
== END ==
LOC: M LAB 06:26
PROVIDERS: ATTEND Physician Assistant Medical
DX: G40.909 Epilepsy, unspecified, not intractable, without status epilepticus (principal)

== ENCOUNTER → 2019-01-04 | Outpatient (CLI) | payer MEDICARE, MEDICAID | LOC: M PLARAD 10:43 | DX: Z53.9 Procedure and treatment not carried out, unspecified reason (principal); K85.90 Acute pancreatitis without necrosis or infection, unspecified; R63.4 Abnormal weight loss; R74.8 Abnormal levels of other serum enzymes ==

== ENCOUNTER → 2019-02-16 | Outpatient (CLI) | payer MEDICARE, MEDICAID | LOC: M WUC 09:28 | PROVIDERS: ATTEND Internal Medicine | DX: E03.9 Hypothyroidism, unspecified (principal); R63.4 Abnormal weight loss ==

== ENCOUNTER → 2019-02-21 | Outpatient (CLI) | payer MEDICARE, MEDICAID | LOC: M LAB 17:25 | PROVIDERS: ATTEND Internal Medicine Gastroenterology | DX: R19.09 Other intra-abdominal and pelvic swelling, mass and lump (principal); K85.90 Acute pancreatitis without necrosis or infection, unspecified; R74.8 Abnormal levels of other serum enzymes; R10.84 Generalized abdominal pain; R63.4 Abnormal weight loss; Z53.8 Procedure and treatment not carried out for other reasons ==

== ENCOUNTER → 2019-02-25 | Outpatient (REF) | payer MEDICARE, MEDICAID | LOC: M LAB REF 10:58 | PROVIDERS: ATTEND Surgery | DX: R19.00 Intra-abdominal and pelvic swelling, mass and lump, unspecified site (principal); R74.8 Abnormal levels of other serum enzymes; R63.4 Abnormal weight loss; R10.84 Generalized abdominal pain ==

== ENCOUNTER → 2019-04-15 | Outpatient (REF) | payer MEDICARE, MEDICAID ==
[~2019-04-15] MED LIST changes: +CHOL100029 PO; -VITAD1000T PO
[2019-04-17 14:52] LABS: HPV HYBRID CAPTURE II Negative (Negative)
== END ==
LOC: M SFHCWAGY 09:08
PROVIDERS: ATTEND Nurse Practitioner Family
DX: Z12.4 Encounter for screening for malignant neoplasm of cervix (principal)
CPT/HCPCS: 87624; G0101; G0123

== ENCOUNTER 2019-12-03 14:24 | Emergency (ER) | payer MEDICARE, MEDICAID ==
[~2019-12-03] VITALS: Ht 154.9 cm; Wt 53.6 kg
[~2019-12-03 14:24] MED LIST changes: -LAMO150T2 PO; +LAMO150T3 PO; -LAMO200T2 PO; +LAMO200T3 PO; -OMEP40CA2 PO; +OMEP40CA97 PO
[2019-12-03 14:44] VITALS: BP 159/84
== END 2019-12-03 15:08 | disposition home or self-care (01) ==
LOC: M ED 14:24 → EDBD 14:24 → M ED 15:08
DX: S00.81XA Abrasion of other part of head, initial encounter (principal); W01.0XXA Fall on same level from slipping, tripping and stumbling without subsequent striking against object, initial encounter; Y92.89 Other specified places as the place of occurrence of the external cause; Y93.01 Activity, walking, marching and hiking; F79 Unspecified intellectual disabilities; Z79.899 Other long term (current) drug therapy

== ENCOUNTER → 2020-02-24 | Outpatient (REF) | payer MEDICARE, MEDICAID ==
[2020-03-25 15:18] LABS: BASO % 0.3 % (0.0-1.0); EOS % 0.5 % (0.0-3.0); HEMATOCRIT 36.7 % (36.0-47.0); HEMOGLOBIN 11.8 g/dl (12.0-15.5); LYMPH # 0.9 10^3/uL (1.5-5.0); LYMPH % 11.6 % (24.0-44.0); MEAN CORPUSCULAR HEMOGLOBIN 26.2 pg (27.0-33.0); MEAN CORPUSCULAR HGB CONC 32.2 g/dl (32.0-36.5); MEAN CORPUSCULAR VOLUME 81.6 fl (80.0-96.0); MONO # 0.4 10^3/uL (0.0-0.8); MONO % 5.5 % (0.0-5.0); NEUTROPHILS # 6.3 10^3/uL (1.5-8.5); NEUTROPHILS % 81.7 % (36.0-66.0); PLATELET COUNT, AUTOMATED 229 10^3/uL (150-450); WHITE BLOOD COUNT 7.7 10^3/uL (4.0-10.0)
[2020-04-08 11:59] LABS: HEMOGLOBIN A1c 5.2 %
[2020-04-08 12:00] LABS: ALBUMIN 3.4 GM/DL (3.2-5.2); ALT/SGPT 16 U/L (12-78); BILIRUBIN,TOTAL 0.4 MG/DL (0.2-1.0); BLOOD UREA NITROGEN 13 MG/DL (7-18); CALCIUM LEVEL 8.7 MG/DL (8.5-10.1); CARBON DIOXIDE LEVEL 30 MEQ/L (21-32); CHLORIDE LEVEL 100 MEQ/L (98-107); CHOLESTEROL LEVEL 211 MG/DL (<200); CHOLESTEROL RISK RATIO 2.573 (<5); CREATININE FOR GFR 0.73 MG/DL (0.55-1.30); GLOMERULAR FILTRATION RATE > 60.0 (>60); GLUCOSE, FASTING 68 MG/DL (70-100); HDL CHOLESTEROL 82 MG/DL (>40); LDL CHOLESTEROL 98 MG/DL (<100); NON-HDL-C 129 MG/DL; SODIUM LEVEL 135 MEQ/L (136-145); TOTAL PROTEIN 6.5 GM/DL (6.4-8.2); TRIGLYCERIDES LEVEL 155 MG/DL (<150)
== END ==
LOC: M LABWUC 12:54
PROVIDERS: ATTEND Physician Assistant
DX: F84.0 Autistic disorder (principal); Z79.899 Other long term (current) drug therapy

== ENCOUNTER 2020-07-06 16:47 | Emergency (ER) | payer MEDICARE, MEDICAID ==
[~2020-07-06] VITALS: Ht 154.9 cm; Wt 57.7 kg
[2020-07-06] MEDS ORDERED: KEPP1TAB PO (17:05)
[2020-07-06] MEDS ORDERED: TRI-TAB PO (17:05)
[2020-07-06] MEDS ORDERED: LINZ145C PO (17:05)
[2020-07-06] MEDS ORDERED: MINI2CAP PO (17:05)
[2020-07-06] MEDS ORDERED: EMLA CREAM 5GM TUBE (LIDOCAINE/PRILOCAINE) TOP ONE (19:00)
--- NOTE | 2020-07-06 20:16 | REPVR ---
PROCEDURE INFORMATION: Exam: CT Head Without Contrast Exam date and time: 07/06/2020 8:02 PM Age: 39 years old Clinical indication: Injury or trauma; Fall; Blunt trauma (contusions or hematomas) TECHNIQUE: Imaging protocol: Computed tomography of the head without contrast. Radiation optimization: All CT scans at this facility use at least one of these dose optimization techniques: automated exposure control; mA and/or kV adjustment per patient size (includes targeted exams where dose is matched to clinical indication); or iterative reconstruction. COMPARISON: CT Head W/O FOLL BY WITH CONTR 02/15/2017 5:32 PM FINDINGS: Brain: Periventricular white matter lucencies demonstrated bilaterally consistent with white matter disease not typically demonstrated in this age group although stable in comparison to the prior study. Focus of hyperdensity demonstrated in a anterior gyrus of the right frontal lobe of uncertain significance possibly representing artifact. Clinical correlation to exclude a parenchymal contusion depending upon site of injury suggested. Cerebral ventricles: No ventriculomegaly. Bones/joints: Unremarkable. No acute fracture. Paranasal sinuses: Visualized sinuses are unremarkable. No fluid levels. Mastoid air cells: Visualized mastoid air cells are well aerated. Soft tissues: Unremarkable. IMPRESSION: 1. Periventricular white matter lucencies demonstrated bilaterally consistent with white matter disease not typically demonstrated in this age group although stable in comparison to the prior study. 2. Focus of hyperdensity demonstrated in a anterior gyrus of the right frontal lobe of uncertain significance possibly representing artifact. Clinical correlation to exclude a parenchymal contusion depending upon site of injury suggested. Electronically signed by: Nicholas Ashley On 07/06/2020 20:16:02 PM
--- NOTE | 2020-07-06 20:18 | REPVR ---
PROCEDURE INFORMATION: Exam: CT Cervical Spine Without Contrast Exam date and time: 07/06/2020 8:02 PM Age: 39 years old Clinical indication: Injury or trauma; Fall; Blunt trauma TECHNIQUE: Imaging protocol: Computed tomography images of the cervical spine without contrast. Radiation optimization: All CT scans at this facility use at least one of these dose optimization techniques: automated exposure control; mA and/or kV adjustment per patient size (includes targeted exams where dose is matched to clinical indication); or iterative reconstruction. COMPARISON: No relevant prior studies available. FINDINGS: Bones/joints: No acute fracture. Normal alignment. Discs/Spinal canal/Neural foramina: No significant disc protrusion. No severe spinal canal stenosis. No significant neural foraminal narrowing. Lungs: Lung apices are normal. Soft tissues: Unremarkable. IMPRESSION: No acute findings. Electronically signed by: Nicholas Ashley On 07/06/2020 20:18:43 PM
[2020-07-06 22:24] VITALS: BP 141/77
== END 2020-07-06 22:29 | disposition home or self-care (01) ==
LOC: M ED 18:12
DX: S01.01XA Laceration without foreign body of scalp, initial encounter (principal); W19.XXXA Unspecified fall, initial encounter; Y92.099 Unspecified place in other non-institutional residence as the place of occurrence of the external cause; Y93.9 Activity, unspecified; Y99.9 Unspecified external cause status; F79 Unspecified intellectual disabilities; F84.0 Autistic disorder; F43.10 Post-traumatic stress disorder, unspecified; E03.9 Hypothyroidism, unspecified; G40.909 Epilepsy, unspecified, not intractable, without status epilepticus; Z79.3 Long term (current) use of hormonal contraceptives; Z79.899 Other long term (current) drug therapy

== ENCOUNTER → 2020-10-17 | Outpatient (CLI) | payer MEDICARE, MEDICAID ==
[~2020-10-17] MED LIST changes: +KEPP1TAB PO; +LINZ145C PO
[2020-10-17 09:14] LABS: BASO % 0.3 % (0.0-1.0); EOS % 0.6 % (0.0-3.0); HEMATOCRIT 37.9 % (36.0-47.0); HEMOGLOBIN 12.2 g/dl (12.0-15.5); LYMPH # 1.4 10^3/uL (1.5-5.0); MEAN CORPUSCULAR HEMOGLOBIN 25.6 pg (27.0-33.0); MEAN CORPUSCULAR HGB CONC 32.2 g/dl (32.0-36.5); MEAN CORPUSCULAR VOLUME 79.5 fl (80.0-96.0); MONO # 0.3 10^3/uL (0.0-0.8); MONO % 5.5 % (2.0-8.0); NEUTROPHILS # 4.4 10^3/uL (1.5-8.5); PLATELET COUNT, AUTOMATED 236 10^3/uL (150-450); RED BLOOD COUNT 4.77 10^6/uL (4.00-5.40); WHITE BLOOD COUNT 6.2 10^3/uL (4.0-10.0)
[2020-10-17 09:49] LABS: ALBUMIN 3.4 GM/DL (3.2-5.2); ALT/SGPT 16 U/L (12-78); BILIRUBIN,TOTAL 0.3 MG/DL (0.2-1.0); BLOOD UREA NITROGEN 9 MG/DL (7-18); CALCIUM LEVEL 8.8 MG/DL (8.5-10.1); CARBON DIOXIDE LEVEL 31 MEQ/L (21-32); CHLORIDE LEVEL 98 MEQ/L (98-107); CREATININE FOR GFR 0.71 MG/DL (0.55-1.30); GLOMERULAR FILTRATION RATE > 60.0 (>60); GLUCOSE, FASTING 73 MG/DL (70-100); POTASSIUM SERUM 4.3 MEQ/L (3.5-5.1); SODIUM LEVEL 135 MEQ/L (136-145); TOTAL PROTEIN 6.9 GM/DL (6.4-8.2)
== END ==
LOC: M LAB 08:43
PROVIDERS: ATTEND Physician Assistant Medical
DX: R56.9 Unspecified convulsions (principal); Z51.81 Encounter for therapeutic drug level monitoring

== ENCOUNTER 2020-10-23 20:31 | Emergency (ER) | payer MEDICARE, MEDICAID ==
[~2020-10-23] VITALS: Ht 154.9 cm; Wt 52.3 kg
[2020-10-23 20:32] VITALS: BP 143/89
== END 2020-10-23 22:20 | disposition home or self-care (01) ==
LOC: M ED 20:31
DX: S01.01XA Laceration without foreign body of scalp, initial encounter (principal); W18.09XA Striking against other object with subsequent fall, initial encounter; Y92.099 Unspecified place in other non-institutional residence as the place of occurrence of the external cause; Y93.9 Activity, unspecified; Y99.9 Unspecified external cause status; F71 Moderate intellectual disabilities; F90.9 Attention-deficit hyperactivity disorder, unspecified type; F84.0 Autistic disorder; G40.909 Epilepsy, unspecified, not intractable, without status epilepticus; K92.9 Disease of digestive system, unspecified; N92.6 Irregular menstruation, unspecified; M54.9 Dorsalgia, unspecified; Z87.19 Personal history of other diseases of the digestive system; Z79.3 Long term (current) use of hormonal contraceptives; Z79.899 Other long term (current) drug therapy

== ENCOUNTER → 2021-05-13 | Outpatient (CLI) | payer MEDICARE, MEDICAID ==
[~2021-05-13] MED LIST changes: +OMEP40CA4 PO; -OMEP40CA97 PO
--- NOTE | 2021-05-13 12:50 | REPMRS ---
Patient History The patient states she had a clinical breast exam in April 2021. Patient is nulliparous. Family history of ovarian cancer at age 29 in sister, breast cancer at age 60 in maternal aunt. Digital Woman Screen Mammo: May 13, 2021 - Exam #: [id number] Bilateral CC and MLO view(s) were taken. Technologist: Alicia Osman, Technologist Prior study comparison: March 14, 2014, digital mammo diagnostic bilateral, performed at [facility]. FINDINGS: The breast tissue is extremely dense which could obscure a lesion on mammography. Screening. Digital screening (2D) mammography was performed bilaterally in the CC and MLO projections. Todays exam was compared to the prior exam/exams. By history, the patient has no complaints of a palpable breast abnormality or other significant breast complaints. The Volpara volumetric breast density category is D, the breasts are extremely dense which lowers the sensitivity of mammography. The breasts are unchanged in size and shape. There are no mohsen-soft tissue densities or spiculated masses. There is no internal architectural distortion. There are no suspicious mohsen-calcific clusters. Skin thickening or nipple retraction is not present. IMPRESSION: BI-RADS Category 2- Benign Findings. There is no evidence of malignant alteration of the breasts. Followup examination recommended in one year. The lifetime Tyrer-Cuzick score is 20.4% This mammogram was read with the assistance of [employer],an FDA approved computer aided detection system for mammography. Due to the density of the breasts and Tyrer Cuzick score of 20% or greater, MRI/whole breast screening ultrasound is warranted. Negative x-ray reports should not delay surgical consultation if a dominant or clinically suspicious mass is present. Not all breast cancers can be identified by mammography. Therefore, we recommend that you continue to perform regular breast self-examination and physical examination and then promptly contact your physician of any concerns or changes. Adenosis and dense breasts may obscure an underlying neoplasm. No significant changes when compared with prior studies. Assessment: BI-RADS/ACR category 2 mammogram. Benign Findings. Recommendation Routine screening mammogram of both breasts in 1 year. Electronically Signed By: Saud Cueva MD 05/13/21 [id number]
== END ==
LOC: M WHC 11:16
PROVIDERS: ATTEND Nurse Practitioner Women's Health
DX: Z12.31 Encounter for screening mammogram for malignant neoplasm of breast (principal); Z80.41 Family history of malignant neoplasm of ovary
CPT/HCPCS: 77067; G0463

== ENCOUNTER → 2021-07-28 | Outpatient (REF) | payer MEDICARE, MEDICAID ==
[~2021-07-28] MED LIST changes: +LEVE500T5 PO; +MIRA3350 PO; +OMEP-221 PO; +TRAZ-257 PO
== END ==
LOC: M LAB REF 11:53
PROVIDERS: ATTEND Internal Medicine
DX: R19.7 Diarrhea, unspecified (principal)

== ENCOUNTER → 2021-12-29 | Outpatient (CLI) | payer MEDICARE, MEDICAID ==
[~2021-12-29] MED LIST changes: -OMEP-221 PO; +OMEP40CA5 PO
== END ==
LOC: M PLALAB 09:18
PROVIDERS: ATTEND Internal Medicine
DX: E03.9 Hypothyroidism, unspecified (principal)

== ENCOUNTER → 2021-12-29 | Outpatient (CLI) | payer MEDICARE, MEDICAID | LOC: M PLALAB 09:23 | PROVIDERS: ATTEND Physician Assistant Medical | DX: R56.9 Unspecified convulsions (principal) ==

== ENCOUNTER 2022-05-16 10:49 | Emergency (ER) | payer MEDICARE, MEDICAID ==
[~2022-05-16] VITALS: Ht 157.5 cm; Wt 58.2 kg
[~2022-05-16 10:49] MED LIST changes: -QUET300T53 PO; +QUET300T93 PO
[2022-05-16 14:04] LABS: BASO % 0.2 % (0.0-1.0); HEMATOCRIT 36.6 % (36.0-47.0); HEMOGLOBIN 11.8 g/dl (12.0-15.5); MEAN CORPUSCULAR HEMOGLOBIN 25.8 pg (27.0-33.0); MEAN CORPUSCULAR HGB CONC 32.2 g/dl (32.0-36.5); MEAN CORPUSCULAR VOLUME 79.9 fl (80.0-96.0); MONO # 0.4 10^3/uL (0.0-0.8); MONO % 8.2 % (2.0-8.0); NEUTROPHILS # 3.1 10^3/uL (1.5-8.5); NEUTROPHILS % 67.9 % (36.0-66.0); PLATELET COUNT, AUTOMATED 207 10^3/uL (150-450); RED BLOOD COUNT 4.58 10^6/uL (4.00-5.40); WHITE BLOOD COUNT 4.5 10^3/uL (4.0-10.0)
[2022-05-16] MEDS ORDERED: NS 1,000 ML IV ONE (14:45)
[2022-05-16 14:48] LABS: ALBUMIN 3.4 GM/DL (3.2-5.2); ALT/SGPT 21 U/L (12-78); BILIRUBIN,DIRECT < 0.1 MG/DL (0.0-0.2); BILIRUBIN,TOTAL 0.2 MG/DL (0.2-1.0); BLOOD UREA NITROGEN 8 MG/DL (7-18); CARBON DIOXIDE LEVEL 25 MEQ/L (21-32); CHLORIDE LEVEL 102 MEQ/L (98-107); FREE THYROXINE INDEX 3.3 % (1.3-4.8); GLOMERULAR FILTRATION RATE > 60.0 (>58); GLUCOSE, FASTING 90 MG/DL (70-100); LIPASE 276 U/L (73-393); SODIUM LEVEL 134 MEQ/L (136-145); T UPTAKE 34 % (30-39); THYROXINE (T4) 9.8 UG/DL (4.5-12.0); TOTAL PROTEIN 6.7 GM/DL (6.4-8.2)
[2022-05-16] MEDS ORDERED: ISOVUE-370 76% 100ML VIAL As Ordered ONE (14:57)
[2022-05-16 18:32] VITALS: BP 142/68
== END 2022-05-16 18:33 | disposition home or self-care (01) ==
LOC: M ED 10:49
DX: K59.00 Constipation, unspecified (principal); K21.9 Gastro-esophageal reflux disease without esophagitis; R56.9 Unspecified convulsions; E03.9 Hypothyroidism, unspecified; F43.10 Post-traumatic stress disorder, unspecified; F84.0 Autistic disorder; Z79.899 Other long term (current) drug therapy

== ENCOUNTER → 2022-06-21 | Outpatient (CLI) | payer MEDICARE, MEDICAID ==
[2022-06-21 14:31] LABS: HEMATOCRIT 38.5 % (36.0-47.0); HEMOGLOBIN 12.1 g/dl (12.0-15.5); MEAN CORPUSCULAR HEMOGLOBIN 25.5 pg (27.0-33.0); MEAN CORPUSCULAR HGB CONC 31.4 g/dl (32.0-36.5); MEAN CORPUSCULAR VOLUME 81.2 fl (80.0-96.0); PLATELET COUNT, AUTOMATED 207 10^3/uL (150-450); RED BLOOD COUNT 4.74 10^6/uL (4.00-5.40); WHITE BLOOD COUNT 5.8 10^3/uL (4.0-10.0)
[2022-06-21 15:19] LABS: ALBUMIN 3.5 G/DL (3.2-5.2); ALKALINE PHOSPHATASE 87 U/L (46-116); ALT/SGPT 15 U/L (7.0-40); AST/SGOT 14 U/L (<34); BILIRUBIN,TOTAL 0.4 MG/DL (0.3-1.2); BLOOD UREA NITROGEN 13 MG/DL (9-23); CALCIUM LEVEL 9.1 MG/DL (8.5-10.1); CARBON DIOXIDE LEVEL 31 MMOL/L (20-31); CHLORIDE LEVEL 100 MMOL/L (98-107); CREATININE FOR GFR 0.74 MG/DL (0.55-1.30); GLOMERULAR FILTRATION RATE > 60.0 (>58); GLUCOSE, FASTING 72 MG/DL (60-100); POTASSIUM SERUM 4.3 MMOL/L (3.5-5.1); SODIUM LEVEL 138 MMOL/L (136-145); TOTAL PROTEIN 6.8 G/DL (5.7-8.2)
[2022-06-21 15:22] LABS: THYROID STIMULATING HORMONE 1.141 uIU/ML (0.55-4.78)
== END ==
LOC: M PLALAB 11:39
PROVIDERS: ATTEND Internal Medicine
DX: E03.9 Hypothyroidism, unspecified (principal)

== ENCOUNTER → 2022-06-29 | Outpatient (CLI) | payer MEDICARE, MEDICAID ==
[2022-06-29 10:20] LABS: BASO % 0.5 % (0.0-1.0); EOS % 0.3 % (0.0-3.0); HEMATOCRIT 37.6 % (36.0-47.0); HEMOGLOBIN 11.5 g/dl (12.0-15.5); LYMPH # 1.5 10^3/uL (1.5-5.0); LYMPH % 38.7 % (24.0-44.0); MEAN CORPUSCULAR HEMOGLOBIN 25.1 pg (27.0-33.0); MEAN CORPUSCULAR HGB CONC 30.6 g/dl (32.0-36.5); MEAN CORPUSCULAR VOLUME 81.9 fl (80.0-96.0); MONO # 0.4 10^3/uL (0.0-0.8); MONO % 8.9 % (2.0-8.0); NEUTROPHILS % 51.1 % (36.0-66.0); PLATELET COUNT, AUTOMATED 206 10^3/uL (150-450); RED BLOOD COUNT 4.59 10^6/uL (4.00-5.40); WHITE BLOOD COUNT 3.9 10^3/uL (4.0-10.0)
[2022-06-29 10:58] LABS: HEMOGLOBIN A1c 4.6 % (4.0-6.0)
[2022-06-29 11:19] LABS: ALBUMIN 3.5 G/DL (3.2-5.2); ALKALINE PHOSPHATASE 83 U/L (46-116); ALT/SGPT 14 U/L (7.0-40); AST/SGOT 22 U/L (<34); BILIRUBIN,TOTAL 0.4 MG/DL (0.3-1.2); BLOOD UREA NITROGEN 11 MG/DL (9-23); CALCIUM LEVEL 8.9 MG/DL (8.5-10.1); CARBON DIOXIDE LEVEL 28 MMOL/L (20-31); CHLORIDE LEVEL 102 MMOL/L (98-107); CHOLESTEROL LEVEL 214 MG/DL (<200); CHOLESTEROL RISK RATIO 2.44 (<5); CREATININE FOR GFR 0.83 MG/DL (0.55-1.30); GLOMERULAR FILTRATION RATE > 60.0 (>58); GLUCOSE, FASTING 72 MG/DL (60-100); HDL CHOLESTEROL 87.4 MG/DL (>40); LDL CHOLESTEROL 101.6 MG/DL (<100); NON-HDL-C 127 MG/DL; POTASSIUM SERUM 4.4 MMOL/L (3.5-5.1); SODIUM LEVEL 138 MMOL/L (136-145); TOTAL PROTEIN 6.6 G/DL (5.7-8.2); TRIGLYCERIDES LEVEL 125 MG/DL (<150)
== END ==
LOC: M PLALAB 07:54
PROVIDERS: ATTEND Physician Assistant
DX: Z79.899 Other long term (current) drug therapy (principal)

== ENCOUNTER 2022-07-06 13:50 | Emergency (ER) | payer MEDICARE, MEDICAID ==
[~2022-07-06] VITALS: Ht 157.5 cm; Wt 55.5 kg
[2022-07-06 13:50] VITALS: BP 139/102
== END 2022-07-06 17:33 | disposition left against medical advice (07) ==
LOC: M ED 17:31
DX: Z53.21 Procedure and treatment not carried out due to patient leaving prior to being seen by health care provider (principal)

== ENCOUNTER 2022-07-19 13:39 | Emergency (ER) | payer MEDICARE, MEDICAID ==
[~2022-07-19] VITALS: Ht 160 cm; Wt 53.6 kg
[2022-07-19 13:54] VITALS: BP 152/90
== END 2022-07-19 19:01 | disposition home or self-care (01) ==
LOC: M ED 13:39
DX: S01.01XA Laceration without foreign body of scalp, initial encounter (principal); W19.XXXA Unspecified fall, initial encounter; Y92.89 Other specified places as the place of occurrence of the external cause; J45.909 Unspecified asthma, uncomplicated; Z79.899 Other long term (current) drug therapy

== ENCOUNTER → 2022-07-25 | Outpatient (CLI) | payer MEDICARE, MEDICAID ==
[2022-07-25 08:29] LABS: BASO % 0.6 % (0.0-1.0); HEMATOCRIT 37.8 % (36.0-47.0); HEMOGLOBIN 11.6 g/dl (12.0-15.5); LYMPH # 1.5 10^3/uL (1.5-5.0); LYMPH % 28.9 % (24.0-44.0); MEAN CORPUSCULAR HEMOGLOBIN 24.9 pg (27.0-33.0); MEAN CORPUSCULAR HGB CONC 30.7 g/dl (32.0-36.5); MEAN CORPUSCULAR VOLUME 81.1 fl (80.0-96.0); MONO # 0.4 10^3/uL (0.0-0.8); MONO % 8.4 % (2.0-8.0); NEUTROPHILS # 3.1 10^3/uL (1.5-8.5); NEUTROPHILS % 60.9 % (36.0-66.0); PLATELET COUNT, AUTOMATED 298 10^3/uL (150-450); RED BLOOD COUNT 4.66 10^6/uL (4.00-5.40); WHITE BLOOD COUNT 5.1 10^3/uL (4.0-10.0)
[2022-07-25 09:01] LABS: ALBUMIN 3.3 G/DL (3.2-5.2); ALKALINE PHOSPHATASE 105 U/L (46-116); ALT/SGPT 31 U/L (7.0-40); AST/SGOT 22 U/L (<34); BILIRUBIN,TOTAL 0.4 MG/DL (0.3-1.2); BLOOD UREA NITROGEN 15 MG/DL (9-23); CALCIUM LEVEL 9.2 MG/DL (8.5-10.1); CARBON DIOXIDE LEVEL 30 MMOL/L (20-31); CHLORIDE LEVEL 100 MMOL/L (98-107); CREATININE FOR GFR 0.82 MG/DL (0.55-1.30); FOLATE 10.9 NG/ML (>5.4); GLOMERULAR FILTRATION RATE > 60.0 (>58); GLUCOSE, FASTING 77 MG/DL (60-100); POTASSIUM SERUM 4.4 MMOL/L (3.5-5.1); SODIUM LEVEL 136 MMOL/L (136-145); TOTAL PROTEIN 6.7 G/DL (5.7-8.2); VITAMIN B12 LEVEL 249 PG/ML (211-911)
== END ==
LOC: M LAB 07:51
PROVIDERS: ATTEND Psychiatry & Neurology Neurology
DX: R56.9 Unspecified convulsions (principal); E53.8 Deficiency of other specified B group vitamins

== ENCOUNTER → 2022-12-30 | Outpatient (CLI) | payer MEDICARE, MEDICAID ==
[2022-12-30 08:57] LABS: FOLATE 14.3 NG/ML (>5.4)
== END ==
LOC: M LAB 07:38
PROVIDERS: ATTEND Psychiatry & Neurology Neurology
DX: E53.8 Deficiency of other specified B group vitamins (principal)

== ENCOUNTER 2023-05-26 09:38 | Emergency (ER) | payer MEDICARE, MEDICAID ==
[~2023-05-26] VITALS: Ht 157.5 cm; Wt 50.9 kg
[2023-05-26] MEDS ORDERED: LEVO88TA3 PO (10:15)
[2023-05-26] MEDS ORDERED: AMIT24CA7 PO (10:15)
[2023-05-26] MEDS ORDERED: CVS10CAP7 PO (10:15)
[2023-05-26 10:49] LABS: BASO % 0.4 % (0.0-1.0); HEMATOCRIT 35.6 % (36.0-47.0); HEMOGLOBIN 11.5 g/dl (12.0-15.5); LYMPH # 1.2 10^3/uL (1.5-5.0); LYMPH % 24.1 % (24.0-44.0); MEAN CORPUSCULAR HEMOGLOBIN 28.1 pg (27.0-33.0); MEAN CORPUSCULAR HGB CONC 32.3 g/dl (32.0-36.5); MONO # 0.5 10^3/uL (0.0-0.8); NEUTROPHILS # 3.2 10^3/uL (1.5-8.5); NEUTROPHILS % 64.7 % (36.0-66.0); PLATELET COUNT, AUTOMATED 195 10^3/uL (150-450); RED BLOOD COUNT 4.09 10^6/uL (4.00-5.40)
[2023-05-26 11:10] LABS: LIPASE 40 U/L (12-53)
[2023-05-26 11:12] LABS: ALKALINE PHOSPHATASE 82 U/L (46-116); ALT/SGPT 14 U/L (7.0-40); AST/SGOT 15 U/L (<34); BILIRUBIN,DIRECT < 0.1 MG/DL (<0.4); BILIRUBIN,TOTAL 0.3 MG/DL (0.3-1.2); BLOOD UREA NITROGEN 15 MG/DL (9-23); CALCIUM LEVEL 8.8 MG/DL (8.5-10.1); CARBON DIOXIDE LEVEL 29 MMOL/L (20-31); CHLORIDE LEVEL 104 MMOL/L (98-107); CREATININE FOR GFR 0.79 MG/DL (0.55-1.30); GLOMERULAR FILTRATION RATE > 60.0 (>58); GLUCOSE, FASTING 79 MG/DL (60-100); POTASSIUM SERUM 3.9 MMOL/L (3.5-5.1); SODIUM LEVEL 139 MMOL/L (136-145); TOTAL PROTEIN 6.2 G/DL (5.7-8.2)
[2023-05-26 12:45] VITALS: BP 149/87; TEMP 98; O2SAT 100
== END 2023-05-26 13:30 | disposition home or self-care (01) ==
LOC: EDBD 09:38 → M ED 09:38
DX: G40.909 Epilepsy, unspecified, not intractable, without status epilepticus (principal); Z79.899 Other long term (current) drug therapy

== ENCOUNTER → 2023-08-19 | Outpatient (CLI) | payer MEDICARE, MEDICAID ==
[~2023-08-19] MED LIST changes: +AMIT24CA7 PO; +CVS10CAP7 PO
[2023-08-19 09:29] LABS: HEMATOCRIT 38.2 % (36.0-47.0); HEMOGLOBIN 12.6 g/dl (12.0-15.5); MEAN CORPUSCULAR HEMOGLOBIN 28.4 pg (27.0-33.0); MEAN CORPUSCULAR VOLUME 86.2 fl (80.0-96.0); PLATELET COUNT, AUTOMATED 141 10^3/uL (150-450); RED BLOOD COUNT 4.43 10^6/uL (4.00-5.40)
[2023-08-19 09:56] LABS: ALBUMIN 3.1 G/DL (3.2-5.2); ALKALINE PHOSPHATASE 72 U/L (46-116); ALT/SGPT 15 U/L (7.0-40); AST/SGOT 25 U/L (<34); BILIRUBIN,TOTAL 0.3 MG/DL (0.3-1.2); BLOOD UREA NITROGEN 14 MG/DL (9-23); CALCIUM LEVEL 8.8 MG/DL (8.5-10.1); CARBON DIOXIDE LEVEL 29 MMOL/L (20-31); CHLORIDE LEVEL 107 MMOL/L (98-107); CREATININE FOR GFR 0.68 MG/DL (0.55-1.30); GLOMERULAR FILTRATION RATE > 60.0 (>58); GLUCOSE, FASTING 73 MG/DL (60-100); POTASSIUM SERUM 4.6 MMOL/L (3.5-5.1); SODIUM LEVEL 139 MMOL/L (136-145); TOTAL PROTEIN 6.3 G/DL (5.7-8.2)
[2023-08-19 09:58] LABS: THYROID STIMULATING HORMONE 1.177 uIU/ML (0.55-4.78)
[2023-08-21 06:48] LABS: WHITE BLOOD COUNT 4.2 10^3/uL (4.0-10.0)
== END ==
LOC: M LAB 08:12
PROVIDERS: ATTEND Internal Medicine
DX: E03.9 Hypothyroidism, unspecified (principal)

== ENCOUNTER → 2023-08-19 | Outpatient (CLI) | payer MEDICARE, MEDICAID ==
[2023-08-19 09:30] LABS: BASO % 0.2 % (0.0-1.0); HEMATOCRIT 38.3 % (36.0-47.0); HEMOGLOBIN 12.5 g/dl (12.0-15.5); LYMPH # 1.4 10^3/uL (1.5-5.0); LYMPH % 34.3 % (24.0-44.0); MEAN CORPUSCULAR HEMOGLOBIN 28.2 pg (27.0-33.0); MEAN CORPUSCULAR HGB CONC 32.6 g/dl (32.0-36.5); MEAN CORPUSCULAR VOLUME 86.5 fl (80.0-96.0); MONO # 0.3 10^3/uL (0.0-0.8); MONO % 7.8 % (2.0-8.0); NEUTROPHILS # 2.3 10^3/uL (1.5-8.5); NEUTROPHILS % 56.7 % (36.0-66.0); PLATELET COUNT, AUTOMATED 174 10^3/uL (150-450); RED BLOOD COUNT 4.43 10^6/uL (4.00-5.40); WHITE BLOOD COUNT 4.1 10^3/uL (4.0-10.0)
[2023-08-19 09:54] LABS: ALKALINE PHOSPHATASE 77 U/L (46-116); ALT/SGPT 12 U/L (7.0-40); AST/SGOT 15 U/L (<34); BILIRUBIN,TOTAL 0.3 MG/DL (0.3-1.2); BLOOD UREA NITROGEN 14 MG/DL (9-23); CALCIUM LEVEL 8.7 MG/DL (8.5-10.1); CARBON DIOXIDE LEVEL 29 MMOL/L (20-31); CHLORIDE LEVEL 104 MMOL/L (98-107); CHOLESTEROL LEVEL 204 MG/DL (<200); CHOLESTEROL RISK RATIO 2.38 (<5); CREATININE FOR GFR 0.67 MG/DL (0.55-1.30); GLOMERULAR FILTRATION RATE > 60.0 (>58); GLUCOSE, FASTING 72 MG/DL (60-100); HDL CHOLESTEROL 85.7 MG/DL (>40); HEMOGLOBIN A1c 4.8 % (4.0-6.0); LDL CHOLESTEROL 88.1 MG/DL (<100); NON-HDL-C 118.3 MG/DL; POTASSIUM SERUM 4.1 MMOL/L (3.5-5.1); SODIUM LEVEL 138 MMOL/L (136-145); TOTAL PROTEIN 6.5 G/DL (5.7-8.2); TRIGLYCERIDES LEVEL 151 MG/DL (<150)
== END ==
LOC: M LAB 08:15
PROVIDERS: ATTEND Physician Assistant
DX: Z79.899 Other long term (current) drug therapy (principal); E03.9 Hypothyroidism, unspecified

== ENCOUNTER → 2024-05-21 | Outpatient (CLI) | payer MEDICARE, MEDICAID | LOC: M WHC 07:39 | PROVIDERS: ATTEND Internal Medicine | DX: Z12.31 Encounter for screening mammogram for malignant neoplasm of breast (principal); R92.333 Mammographic heterogeneous density, bilateral breasts ==

== ENCOUNTER → 2024-05-21 | Outpatient (CLI) | payer MEDICARE, MEDICAID ==
[2024-05-21 11:43] LABS: ALBUMIN 3.2 G/DL (3.2-5.2); ALKALINE PHOSPHATASE 85 U/L (35-104); ALT/SGPT 11 U/L (7.0-40); AST/SGOT 11 U/L (<34); BILIRUBIN,TOTAL 0.3 MG/DL (0.3-1.2); BLOOD UREA NITROGEN 11 MG/DL (9-23); CALCIUM LEVEL 9.2 MG/DL (8.5-10.1); CARBON DIOXIDE LEVEL 25 MMOL/L (20-31); CHLORIDE LEVEL 105 MMOL/L (98-107); CREATININE FOR GFR 0.66 MG/DL (0.55-1.30); GLOMERULAR FILTRATION RATE > 60.0 (>58); GLUCOSE, FASTING 76 MG/DL (60-100); POTASSIUM SERUM 4.4 MMOL/L (3.5-5.1); SODIUM LEVEL 139 MMOL/L (136-145); TOTAL PROTEIN 6.7 G/DL (5.7-8.2)
[2024-05-21 11:45] LABS: THYROID STIMULATING HORMONE 1.186 uIU/ML (0.55-4.78)
== END ==
LOC: M WUC 08:41
PROVIDERS: ATTEND Internal Medicine
DX: E03.9 Hypothyroidism, unspecified (principal); Z12.31 Encounter for screening mammogram for malignant neoplasm of breast; R92.333 Mammographic heterogeneous density, bilateral breasts

== ENCOUNTER → 2024-09-07 | Outpatient (CLI) | payer MEDICARE, MEDICAID ==
[~2024-09-07] MED LIST changes: -AMIT24CA7 PO; +LUBI24CA32 PO
[2024-09-07 09:53] LABS: BASO % 0.4 % (0.0-1.0); EOS # 0.1 10^3/uL (0.0-0.5); EOS % 1.3 % (0.0-3.0); HEMATOCRIT 38.5 % (36.0-47.0); HEMOGLOBIN 12.4 g/dl (12.0-15.5); LYMPH # 1.5 10^3/uL (1.5-5.0); LYMPH % 33.4 % (24.0-44.0); MEAN CORPUSCULAR HEMOGLOBIN 27.9 pg (27.0-33.0); MEAN CORPUSCULAR HGB CONC 32.2 g/dl (32.0-36.5); MEAN CORPUSCULAR VOLUME 86.5 fl (80.0-96.0); MONO # 0.3 10^3/uL (0.0-0.8); MONO % 7.2 % (2.0-8.0); NEUTROPHILS # 2.5 10^3/uL (1.5-8.5); PLATELET COUNT, AUTOMATED 193 10^3/uL (150-450); RED BLOOD COUNT 4.45 10^6/uL (4.00-5.40); WHITE BLOOD COUNT 4.5 10^3/uL (4.0-10.0)
[2024-09-07 10:12] LABS: HEMOGLOBIN A1c 4.7 % (4.0-6.0)
[2024-09-07 10:17] LABS: ALBUMIN 3.2 G/DL (3.2-5.2); ALKALINE PHOSPHATASE 84 U/L (35-104); ALT/SGPT 13 U/L (7.0-40); AST/SGOT 21 U/L (<34); BILIRUBIN,TOTAL 0.3 MG/DL (0.3-1.2); BLOOD UREA NITROGEN 16 MG/DL (9-23); CARBON DIOXIDE LEVEL 27 MMOL/L (20-31); CHLORIDE LEVEL 108 MMOL/L (98-107); CHOLESTEROL LEVEL 222 MG/DL (<200); CHOLESTEROL RISK RATIO 2.33 (<5); GLOMERULAR FILTRATION RATE > 60.0 (>58); GLUCOSE, FASTING 79 MG/DL (60-100); HDL CHOLESTEROL 94.9 MG/DL (>40); LDL CHOLESTEROL 106.5 MG/DL (<100); NON-HDL-C 127.1 MG/DL; POTASSIUM SERUM 4.6 MMOL/L (3.5-5.1); SODIUM LEVEL 144 MMOL/L (136-145); TOTAL PROTEIN 6.6 G/DL (5.7-8.2); TRIGLYCERIDES LEVEL 103 MG/DL (<150)
== END ==
LOC: M LAB 09:03
PROVIDERS: ATTEND Physician Assistant
DX: Z51.81 Encounter for therapeutic drug level monitoring (principal); Z79.899 Other long term (current) drug therapy

== ENCOUNTER → 2025-03-07 | Outpatient (CLI) | payer MEDICARE, MEDICAID ==
[2025-03-07 15:13] LABS: ALT/SGPT 14 U/L (7.0-40); AST/SGOT 17 U/L (<34); CALCIUM LEVEL 9.0 MG/DL (8.5-10.1); CARBON DIOXIDE LEVEL 26 MMOL/L (20-31); CHLORIDE LEVEL 101 MMOL/L (98-107); CREATININE FOR GFR 0.71 MG/DL (0.55-1.30); GLOMERULAR FILTRATION RATE > 90.0 (>58); POTASSIUM SERUM 4.2 MMOL/L (3.5-5.1); SODIUM LEVEL 138 MMOL/L (136-145)
== END ==
LOC: M WUC 11:35
PROVIDERS: ATTEND Internal Medicine
DX: E03.9 Hypothyroidism, unspecified (principal)